=== PATIENT | female | born 1990 | race Caucasian/White ===

== ENCOUNTER → 2017-06-27 | Outpatient (CLI) | payer OTHER | END | disposition home or self-care (01) | LOC: C.PAPS 13:15 | PROVIDERS: ATTEND Physician Assistant | DX: Z01.419 Encounter for gynecological examination (general) (routine) without abnormal findings (principal) ==

== ENCOUNTER 2022-06-03 22:13 | Inpatient (IN) ==
[2022-06-04] MEDS ORDERED: OXYTOCIN 30 UNITS/500 ML BAG IV PRN ×2 (00:31→01:47)
[2022-06-04] MEDS ORDERED: BUTORPHANOL TARTRATE 1 MG/ML VIAL IV STA (00:44)
[2022-06-04 01:12] LABS: Hematocrit (blood only) 37.3 % (34.1-44.9); Mean Corpuscular Hemoglobin 33.8 pg (25.0-34.0); Mean Corpuscular Hgb Conc 34.9 g/dL (32.0-36.0); Mean Corpuscular Volume 96.9 fL (80.0-100.0); Mean Platelet Volume 10.7 fL (9.4-12.3); Platelet Count 203 K/uL (130-400); RDW Coefficient of Variation 12.5 % (11.5-14.5); RDW Standard Deviation 44.1 fL (36.4-46.3); Red Blood Count 3.85 M/uL (3.93-5.22); White Blood Count 18.05 K/ul (4.8-10.8)
[2022-06-04] MEDS: LACTATED RINGER'S 1,000 ML IV PRN ×3 (01:45→09:58)
[2022-06-04] MEDS ORDERED: fentaNYL citrate 100 MCG/2 ML VIAL ONE ×3 (02:13→16:50)
[2022-06-04] MEDS ORDERED: ePHEDrine sulfate 50 MG/ML AMP ONE (02:13)
[2022-06-04] MEDS ORDERED: LIDOCAINE 2%/EPINEPHRINE 1:200,000 20 ML SDV ONE ×2 (02:13→13:04)
[2022-06-04] MEDS ORDERED: SODIUM CHLORIDE 0.9% INJ 10 ML VIAL ONE (02:13)
[2022-06-04] MEDS ORDERED: BUPIVACAINE 0.25% 30 ML VIAL ONE (02:13)
[2022-06-04] MEDS ORDERED: fentaNYL 2MCG/ML ROPIVACAINE 1.25MG/ML 100 ML BAG EPI ONE (02:14)
--- NOTE | 2022-06-04 02:32 | Anesthesiology Consultation ---
Date of Service June 04, 2022 Assessment & Plan (1) Encounter for pre-operative examination: Chart Review Chart Review: Acceptable Risk for Labor Epidural History Height/Weight Height: 5 ft 3 in Weight: 73.028 kg Allergies Allergy/AdvReac Type Severity Reaction Status Date / Time shellfish derived Allergy Swelling Verified 06/02/22 18:28 of Lip/Tongue/Throat Medications Home Medications Medication Instructions Recorded Confirmed Last Taken vitamins-iron fumarate 65 1 tab PO DAILY 06/02/22 06/04/22 06/03/22 mg iron-folic acid 1 mg tablet Active Medications Generic Name Dose Route Start Last Admin Trade Name Freq PRN Reason Stop Dose Admin Lactated Ringer's 1,000 mls @ 125 mls/hr 06/04/22 00:31 06/04/22 01:45 Lr IV 06/06/22 00:30 999 mls/hr .Q8H PRN Administration L&D Protocol Protocol Past Medical History Medical History Anxiety no current meds Past Family History Family History Mother Hypertension Father Hypertension Grandmother (Maternal) Diabetes Kidney disease CHF (congestive heart failure) Grandmother (Paternal) Colon cancer Grandfather (Paternal) ALS (amyotrophic lateral sclerosis) Past Surgical History Surgical History H/O partial thyroidectomy age 16 for benign mass [place] teeth removed age 20 Social History Smoking Status: Never smoker Hx Alcohol Use: No Hx Substance Use: No Physical Exam Vital Signs Last Vital Signs Temp 36.8 C 06/04/22 01:04 Pulse 76 06/04/22 02:25 Resp 18 06/04/22 02:00 BP 111/54 L 06/03/22 23:41 Pulse Ox 97 06/04/22 02:25 Testing Laboratory Results 06/04/22 00:46
[2022-06-04] MEDS ORDERED: NALOXONE HCL 0.4 MG/1 ML VIAL/CARP IV PRN ×2 (03:03→17:05)
[2022-06-04] MEDS ORDERED: ONDANSETRON INJ 2 MG/ML 2 ML VIAL IV PRN ×2 (03:03→17:05)
[2022-06-04] MEDS ORDERED: fentaNYL 2MCG/ML ROPIVACAINE 1.25MG/ML 100 ML BAG EPI PRN (03:03)
[2022-06-04] MEDS ORDERED: NALOXONE HCL 1 MG in SODIUM CHLORIDE 0.9% 1000ML 1,000 ML IV PRN ×2 (03:03→17:05)
[2022-06-04] MEDS ORDERED: ePHEDrine sulfate 50 MG/ML AMP IV PRN ×2 (03:03→17:05)
[2022-06-04] MEDS ORDERED: NURSING L&D Epidural Breakthrough Pain Update ONE (12:20)
--- NOTE | 2022-06-04 13:16 | Communication Note ---
Date of Service: June 04, 2022 Pt complaining of cocyx pain and baby is most likely OP. I bolused her 4 cc of 2 lidocaine and 100 mcg of fentanyl.
--- NOTE | 2022-06-04 16:13 | History and Physical Report ---
DATE OF ADMISSION: 06/04/2022. CHIEF COMPLAINT: Intrauterine at 41 weeks' gestation, arrest of labor. HISTORY OF PRESENT ILLNESS: The patient is a 31-year-old 1, para 0. General health is good. She was followed in our office for care and delivery. She had an uneventful cour se. She did go over her due date. Due date, 05/26/2022, was confirmed by an early ultrasound. She w as admitted in spontaneous labor. At the time of admission, she was about 5 cm, membranes were intact . Cervix was about 90% effaced. She then had Stadol followed by epidural for pain control and then was augmented with IV Pitocin. She had a bulging bag, which was ruptured, fluid was slightly meconiu m stained. At the time of rupture, she was 9 cm. She was then allowed to labor down. She went to f ull dilatation. She pushed for 4-1/2 hours and she had a mid pelvis arrest. The head was wedged in the mid pelvis in an OA position and despite pushing, she could not make any progress. She was diagn osed with cephalopelvic disproportion and primary low segment section was indicated. PAST MEDICAL HISTORY: No known drug allergies. PAST SURGICAL HISTORY: She had part of her thyroid removed and she had wisdom teeth removed. MEDICAL HISTORY: No history of rheumatic fever, heart disease, heart murmur, diabetes, tuberculosis. SOCIAL HISTORY: No smoking, no alcohol intake. Works at the [employer]. FAMILY HISTORY: Mother is 60, has high blood pressure. Father 61, has high blood pressure, kidney d isease. Has one sister and one brother, and one sister has infertility problems. REVIEW OF SYSTEMS: HEAD: No symptoms of frequent or severe headaches. EYES: No symptoms of blurred vision or double vision. EARS: No symptoms of frequent ear infection or difficulty hearing. PHYSICAL EXAMINATION: GENERAL: Well-developed, well-nourished 31-year-old white female, alert, oriented x3, cooperative, i n no acute distress, appeared her stated age. EYES: Conjunctivae pink. Sclerae white, no evidence of jaundice. ENT: Ears had normal light reflex bilaterally. Nose had normal mucosa. Septum is midline. There w ere no polyps. Throat had no erythema or evidence of infection. Teeth are in good state of repair. HEAD: Normocephalic, normal distribution of hair. NECK: Supple. Trachea midline. Thyroid is not enlarged. There is no adenopathy appreciated. Both carotids are of good intensity. CHEST: Clear to auscultation and percussion. No wheezes, rales or rhonchi appreciated. HEART: Had regular rhythm. S1 and S2 are normal. BREASTS: Normal. ABDOMEN: Consistent with a term size fetus. Estimated weight was 8 pounds. There was no CVA tender ness, no calf tenderness. PELVIC: Revealed vertex presentation, large amount of molding, 0 to -1 station in OA position. IMPRESSION OF THIS CASE: Intrauterine 41+ weeks' gestation, arrest of labor secondary to c ephalopelvic disproportion. Job ID: [id number]
[2022-06-04] MEDS ORDERED: cefOXitin 2,000 MG in DEXTROSE 5% 50 ML IV SCH (16:15)
[2022-06-04] MEDS ORDERED: CITRIC ACID/SODIUM CITRATE 15 ML UDC PO SCH (16:15)
[2022-06-04 16:19] LABS: Basophils # (auto) 0.02 K/uL (0-0.2); Basophils % (auto) 0.1 %; Hematocrit (blood only) 32.9 % (34.1-44.9); Hemoglobin 11.6 g/dl (12.0-16.0); Immature Granulocytes # (auto) 0.12 K/uL (0.00-0.02); Immature Granulocytes % (auto) 0.7 %; Lymphocytes # (auto) 1.06 K/uL (1.2-3.4); Mean Corpuscular Hemoglobin 33.7 pg (25.0-34.0); Mean Corpuscular Hgb Conc 35.3 g/dL (32.0-36.0); Mean Corpuscular Volume 95.6 fL (80.0-100.0); Mean Platelet Volume 10.7 fL (9.4-12.3); Monocytes # (auto) 1.17 K/uL (0.24-0.82); Monocytes % (auto) 6.6 %; Neutrophils # (auto) 15.32 K/uL (1.4-6.5); Neutrophils % (auto) 86.6 %; Platelet Count 171 K/uL (130-400); RDW Coefficient of Variation 12.7 % (11.5-14.5); RDW Standard Deviation 43.9 fL (36.4-46.3); Red Blood Count 3.44 M/uL (3.93-5.22); White Blood Count 17.69 K/ul (4.8-10.8)
[2022-06-04] MEDS ORDERED: MoRPHine SULFATE PF 1 MG/ML 10 ML AMP/VIAL ONE (17:04)
[2022-06-04] MEDS ORDERED: LACTATED RINGER'S 500 ML IV PRN (17:05)
[2022-06-04] MEDS ORDERED: diphenhydrAMINE 50 MG/ML VIAL IV PRN (17:05)
[2022-06-04] MEDS ORDERED: MoRPHine SULFATE PF 1 MG/ML 10 ML AMP/VIAL EPI ONE (17:05)
[2022-06-04] MEDS ORDERED: NALOXONE HCL 0.08 MG in SYRINGE 1.8 ML IV PRN (17:05)
[2022-06-04] MEDS ORDERED: NALBUPHINE HCL INJ 10 MG/ML AMP IV PRN (17:05)
[2022-06-04] MEDS ORDERED: MoRPHine SULFATE 2 MG/ML CARP IV PRN (17:05)
[2022-06-04] MEDS ORDERED: KETOROLAC 30 MG/ML VIAL IV PRN (17:05)
[2022-06-04] MEDS ORDERED: DC INTRASPINAL MORPHINE SCH (17:15)
[2022-06-04] MEDS ORDERED: NO NARCOTICS OR SEDATIVES SCH (17:15)
[2022-06-04] MEDS ORDERED: SODIUM CHLORIDE 0.9% 1000ML 1,000 ML IV SCH (17:15)
[2022-06-04] MEDS ORDERED: HYDROCORTISONE ACETATE 25 MG SUPP PR PRN (17:41)
[2022-06-04] MEDS ORDERED: MAGNESIUM HYDROXIDE SUSP 30 ML UDC PO PRN (17:41)
[2022-06-04] MEDS ORDERED: DIPHTHERIA/TETANUS/PERTUSSIS 0.5 ML SYR/VIAL IM ONE (17:41)
[2022-06-04] MEDS ORDERED: SENNA 8.6 MG TAB PO PRN (17:41)
[2022-06-04] MEDS ORDERED: BENZOCAINE 20% AER SPR 82.5 GM CAN EXT PRN (17:41)
[2022-06-04] MEDS ORDERED: LACTATED RINGER'S 1,000 ML IV SCH (17:45)
--- NOTE | 2022-06-04 18:18 | Anesthesiology Progress Note ---
Date of Service June 04, 2022 Anesthesia Post Procedure Vital Signs Vital Signs: Temp Pulse Resp BP Pulse Ox 06/04/22 18:10 18 06/04/22 18:00 37.2 C 18 06/04/22 07:00 37.0 C 18 06/04/22 01:04 36.8 C 18 06/04/22 18:14 91 H 98 06/04/22 18:13 83 113/58 L 06/04/22 18:09 87 98 06/04/22 18:04 92 H 99 06/04/22 18:02 93 H 117/54 L 06/04/22 17:59 88 100 06/04/22 17:54 76 99 06/04/22 17:50 79 109/58 L 06/04/22 17:49 82 100 06/04/22 16:21 89 80 L 06/04/22 16:16 107 H 98 06/04/22 16:15 37.5 C 06/04/22 16:11 108 H 97 06/04/22 16:07 86 138/62 06/04/22 16:06 95 H 100 06/04/22 16:01 84 16 99 06/04/22 15:56 81 100 06/04/22 15:51 82 121/62 99 06/04/22 15:46 81 98 06/04/22 15:41 87 99 06/04/22 15:36 75 132/62 99 06/04/22 15:31 75 18 99 06/04/22 15:30 86 85 L 06/04/22 15:26 73 98 06/04/22 15:21 86 87 L 06/04/22 15:16 74 96 06/04/22 15:15 83 87 L 06/04/22 15:11 71 98 06/04/22 15:06 87 87 L 06/04/22 15:01 37.7 C H 77 18 99 06/04/22 14:58 82 87 L 06/04/22 14:56 85 99 06/04/22 14:53 89 89 L 06/04/22 14:51 71 98 06/04/22 14:52 71 121/56 L 06/04/22 14:48 84 88 L 06/04/22 14:46 80 98 06/04/22 14:41 75 99 06/04/22 14:40 79 92 06/04/22 14:36 76 131/74 99 06/04/22 14:34 92 H 94 06/04/22 14:31 87 16 99 06/04/22 14:26 83 99 06/04/22 14:23 72 118/59 L 90 06/04/22 14:21 71 98 06/04/22 14:16 99 06/04/22 14:16 89 06/04/22 14:16 73 87 L 06/04/22 14:11 99 06/04/22 14:11 79 06/04/22 14:11 73 89 L 06/04/22 14:01 18 06/04/22 14:01 18 06/04/22 14:06 77 115/56 L 99 06/04/22 14:05 84 88 L 06/04/22 14:01 100 06/04/22 14:01 74 06/04/22 14:01 73 118/59 L 06/04/22 13:59 73 88 L 06/04/22 13:56 94 H 87 L 06/04/22 13:53 84 92 06/04/22 13:54 92 H 154/121 H 06/04/22 13:51 80 100 06/04/22 13:48 81 92 06/04/22 13:46 81 99 06/04/22 13:41 87 100 06/04/22 13:36 68 99 06/04/22 13:37 67 109/53 L 06/04/22 13:31 64 98 06/04/22 13:26 68 100 06/04/22 13:23 64 20 114/56 L 06/04/22 13:21 64 100 06/04/22 13:16 65 99 06/04/22 13:15 16 06/04/22 13:15 36.7 C 16 06/04/22 13:11 82 99 06/04/22 13:08 95 H 90 06/04/22 13:06 107 H 120/59 L 84 L 06/04/22 13:04 112 H 133/57 L 06/04/22 13:01 103 H 18 98 06/04/22 12:56 107 H 93 06/04/22 12:55 107 H 93 06/04/22 12:51 78 99 06/04/22 12:49 88 90 06/04/22 12:46 80 76 L 06/04/22 12:41 81 95 06/04/22 12:42 80 93 06/04/22 12:37 74 120/59 L 06/04/22 12:36 94 H 99 06/04/22 12:31 80 98 06/04/22 12:30 18 06/04/22 12:26 83 99 06/04/22 12:25 95 H 92 06/04/22 12:21 80 126/67 98 06/04/22 12:19 92 H 94 06/04/22 12:16 99 H 99 06/04/22 12:11 114 H 98 06/04/22 12:08 86 187/71 H 06/04/22 12:05 79 91 06/04/22 12:01 18 06/04/22 12:01 18 06/04/22 12:00 86 94 06/04/22 11:57 79 91 06/04/22 11:55 91 H 99 06/04/22 11:53 80 116/55 L 06/04/22 11:51 79 92 06/04/22 11:50 78 98 06/04/22 11:45 81 97 06/04/22 11:43 100 H 91 06/04/22 11:40 82 99 06/04/22 11:35 77 99 06/04/22 11:36 73 112/54 L 91 06/04/22 11:31 18 06/04/22 11:31 18 06/04/22 11:30 75 98 06/04/22 11:25 70 98 06/04/22 11:22 64 108/58 L 06/04/22 11:20 86 98 06/04/22 11:15 81 99 06/04/22 11:14 37.0 C 06/04/22 11:01 18 06/04/22 11:01 18 06/04/22 11:10 81 100 06/04/22 11:06 75 157/75 H 06/04/22 11:05 69 98 06/04/22 11:00 76 98 06/04/22 10:55 74 97 06/04/22 10:51 75 111/55 L 06/04/22 10:50 72 98 06/04/22 10:31 18 06/04/22 10:31 18 06/04/22 10:45 78 100 06/04/22 10:40 73 99 06/04/22 10:39 74 89 L 06/04/22 10:35 71 98 06/04/22 10:36 74 110/55 L 06/04/22 10:32 81 93 06/04/22 10:30 74 99 06/04/22 10:27 73 94 06/04/22 10:25 67 100 06/04/22 10:21 67 118/59 L 06/04/22 10:20 67 99 06/04/22 10:15 74 99 06/04/22 10:10 73 100 06/04/22 10:01 18 06/04/22 10:01 18 06/04/22 10:05 68 100 06/04/22 10:06 72 113/61 06/04/22 10:00 76 100 06/04/22 09:55 71 99 06/04/22 09:52 71 115/57 L 06/04/22 09:31 18 06/04/22 09:31 18 06/04/22 09:50 61 100 06/04/22 09:45 66 98 06/04/22 09:40 73 100 06/04/22 09:35 62 99 06/04/22 09:36 67 110/56 L 06/04/22 09:30 69 99 06/04/22 09:25 64 99 06/04/22 09:21 64 118/58 L 06/04/22 09:20 66 100 06/04/22 09:15 37.1 C 65 98 06/04/22 09:10 67 100 06/04/22 09:06 60 107/56 L 06/04/22 09:05 61 99 06/04/22 09:00 72 16 99 06/04/22 08:55 66 99 06/04/22 08:51 61 121/66 06/04/22 08:50 65 99 06/04/22 08:45 68 100 06/04/22 08:31 16 06/04/22 08:31 16 06/04/22 08:40 66 100 06/04/22 08:36 63 115/60 06/04/22 08:35 74 98 06/04/22 08:32 70 92 06/04/22 08:30 65 100 06/04/22 08:25 63 100 06/04/22 08:20 62 100 06/04/22 08:21 61 127/69 06/04/22 08:15 60 99 06/04/22 07:31 16 06/04/22 07:31 16 06/04/22 08:10 63 99 06/04/22 08:01 16 06/04/22 08:01 16 06/04/22 08:07 63 123/66 06/04/22 08:05 67 100 06/04/22 08:00 72 100 06/04/22 07:55 67 99 06/04/22 07:53 60 113/62 06/04/22 07:50 68 98 06/04/22 07:45 60 99 06/04/22 07:40 64 100 06/04/22 07:37 63 118/58 L 06/04/22 07:35 72 100 06/04/22 07:30 68 99 06/04/22 07:25 69 100 06/04/22 07:22 65 113/54 L 06/04/22 07:20 67 100 06/04/22 07:15 72 99 06/04/22 07:10 18 06/04/22 07:10 37.0 C 68 18 100 06/04/22 07:07 71 107/59 L 06/04/22 07:05 71 99 06/04/22 07:00 70 18 100 06/04/22 06:55 65 98 06/04/22 06:52 58 L 121/66 06/04/22 06:50 60 98 06/04/22 06:45 67 99 06/04/22 06:40 60 96 06/04/22 06:36 57 L 120/64 06/04/22 06:35 61 97 06/04/22 06:30 57 L 18 97 06/04/22 06:25 71 97 06/04/22 06:22 59 L 119/65 06/04/22 06:20 66 96 06/04/22 06:15 67 97 06/04/22 06:10 69 97 06/04/22 06:05 68 97 06/04/22 06:06 58 L 121/65 06/04/22 06:00 64 18 97 06/04/22 05:55 60 98 06/04/22 05:52 64 107/67 06/04/22 05:50 61 98 06/04/22 05:45 62 98 06/04/22 05:40 71 99 06/04/22 05:37 63 117/62 06/04/22 05:35 72 98 06/04/22 05:30 37.0 C 72 18 98 06/04/22 05:25 70 100 06/04/22 05:20 59 L 97 06/04/22 05:21 63 122/59 L 06/04/22 05:15 59 L 98 06/04/22 05:10 60 98 06/04/22 05:06 57 L 119/58 L 06/04/22 05:05 62 97 06/04/22 05:00 36.6 C 60 18 97 06/04/22 04:55 57 L 98 06/04/22 04:52 59 L 96/52 L 06/04/22 04:50 63 97 06/04/22 04:45 60 97 06/04/22 04:40 68 97 06/04/22 04:35 60 96 06/04/22 04:36 59 L 99/51 L 06/04/22 04:30 63 18 96 06/04/22 04:25 57 L 97 06/04/22 04:22 64 93/54 L 06/04/22 04:20 63 99 06/04/22 04:15 59 L 96 06/04/22 04:10 65 98 06/04/22 04:06 57 L 107/54 L 06/04/22 04:05 59 L 97 06/04/22 03:47 16 06/04/22 03:47 16 06/04/22 04:00 62 98 06/04/22 03:55 63 98 06/04/22 03:52 56 L 108/59 L 06/04/22 03:50 58 L 97 06/04/22 03:45 59 L 97 06/04/22 03:40 57 L 98 06/04/22 03:37 57 L 112/54 L 06/04/22 03:35 60 99 06/04/22 03:30 62 98 06/04/22 03:25 63 97 06/04/22 03:03 18 06/04/22 03:03 18 06/04/22 03:07 18 06/04/22 03:07 18 06/04/22 03:09 18 06/04/22 03:09 18 06/04/22 03:11 18 06/04/22 03:11 18 06/04/22 03:13 18 06/04/22 03:13 18 06/04/22 03:15 18 06/04/22 03:15 18 06/04/22 03:17 18 06/04/22 03:17 18 06/04/22 03:19 18 06/04/22 03:19 18 06/04/22 03:01 18 06/04/22 03:01 18 06/04/22 03:20 100 06/04/22 03:20 71 06/04/22 03:20 64 100/57 L 06/04/22 03:18 67 98/56 L 06/04/22 03:16 68 104/53 L 06/04/22 03:15 37.0 C 69 18 99 06/04/22 03:14 68 100/55 L 06/04/22 03:12 67 95/52 L 06/04/22 03:10 100 06/04/22 03:10 73 06/04/22 03:10 69 100/54 L 06/04/22 03:08 61 97/56 L 06/04/22 03:05 66 18 100 06/04/22 03:06 66 104/59 L 06/04/22 03:04 62 100/52 L 06/04/22 03:00 70 99 06/04/22 02:58 69 113/64 06/04/22 02:55 79 99 06/04/22 02:50 71 99 06/04/22 02:48 81 124/67 06/04/22 02:45 95 06/04/22 02:45 87 06/04/22 02:45 101 H 85 L 06/04/22 02:43 75 92 06/04/22 02:40 77 100 06/04/22 02:35 66 94 06/04/22 02:30 62 96 06/04/22 02:25 76 97 06/04/22 02:20 69 97 06/04/22 02:00 18 06/04/22 02:00 18 06/03/22 23:41 71 111/54 L Pain Intensity Lower Back: Pain Intensity: 1 Transfer of Care Handoff Completed per policy Notes Mental Status: alert / awake / arousable and participated in evaluation Patient Amnestic to Procedure: Yes Nausea / Vomiting: adequately controlled Pain: adequately controlled Airway Patency, RR, SpO2: stable & adequate BP & HR: stable & adequate Hydration State: stable & adequate Neuraxial Anesthesia: was administered and sensory block is resolving Anesthetic Complications: no major complications apparent and Pt Satisfied with anesthetic care
[2022-06-04] MEDS: OXYTOCIN 20 UNITS in D5W AND LACTATED RINGERS 1,000 ML IV SCH (18:42)
--- NOTE | 2022-06-04 19:09 | Operative Report (OR) ---
DATE OF PROCEDURE: 06/04/2022. PROCEDURE: Primary section. INDICATIONS FOR SURGERY: Cephalopelvic disproportion. PREOPERATIVE DIAGNOSIS: Cephalopelvic disproportion. POSTOPERATIVE DIAGNOSIS: Delivered live female via occiput posterior position. SURGEON: Dez Ontiveros MD. SILVERLIGHT DEVELOPER: Peter Sy MD. ESTIMATED BLOOD LOSS: 500 mL ANESTHESIA: Epidural. OPERATIVE FINDING AND PROCEDURE: The patient was brought to the OR table, correctly identified by shaniqua whittaker and conversation. Compression stockings were applied. A Feliciano catheter was inserted aseptical ly in the bladder, connected to gravity drainage. Lower abdomen was painted with an alcohol based st erilizing solution and draped in the usual sterile fashion. The level of anesthesia was tested and f ound to be good. Then, a Pfannenstiel incision was made and carried down to the anterior fascia by s benjamin dissection. Hemostasis was secured by electrocauterization. Fascia was incised transversely se parating the underlying muscle by blunt and sharp dissection. Recti muscles were in the mi dline, exposing the peritoneum, which was carefully raised and entered. The bladder had been moved u p high on the operative field. We entered above the bladder dome, used the bladder retractor to expo se the lower uterine segment, then opened up the peritoneum above the bladder, undermined the bladder bluntly, pushed out of the operative field, scored the lower uterine segment, then entered with the scissors and extended laterally with two fingers. Meconium stained amniotic fluid was seen at this t bernadette. Technical Sales Support Manager's hand was inserted into the pelvic cavity. The head was easily dislodged from the pe lvis and it also rotated spontaneously on the way out from an OP to an OA. Infant was suctioned thro ugh the mouth and the nose. Body was delivered. Cord blood was stripped and cut. was shown to the parents and then taken to the fagoter who was scrubbed and present at the time of deliver y. Cord blood was taken. Placenta was removed manually. Uterus, tubes, and ovaries were brought ou t through the incision. Uterine cavity was cleansed with a clean sponge. Chromic catgut was used to approximate the myometrial layer with interrupted locked sutures. Then, a dissected fascial layer wa s approximated with a good fascial approximation over that with a heavy duty Vicryl. The edges were approximated with a horizontal suture above and below and then tied together and then the midportion was approximated with vertical sutures and then 3 interrupted [id number] sutures were also place d in the fascial layer to complete the approximation. The peritoneal edges were then restored with a running chromic catgut. Uterus, tubes, and ovaries were inspected and found to be normal. Pelvis w as cleansed of all blood clots and debris. Uterus, tubes, and ovaries were reinserted into the uteri ne cavity. Careful anatomical approximation of the anterior abdominal wall was performed. The perit oneum was sewed with a mattress suture of chromic catgut. Recti muscles were approximated with inter rupted [id number] suture chromic catgut. Fascia was closed with continuous interlocking suture of Vicryl on each side tied in the midline. Subcutaneous was approximated with a running plain and s kin edges were approximated with staple clips. Job ID: [id number]
[2022-06-04] MEDS: DOCUSATE SODIUM 100 MG CAP PO SCH (20:57)
[2022-06-04] MEDS: SIMETHICONE 80 MG CHEW PO SCH (20:59)
[2022-06-05] MEDS: OXYTOCIN 20 UNITS in D5W AND LACTATED RINGERS 1,000 ML IV SCH (03:43)
[2022-06-05 06:17] LABS: Basophils # (auto) 0.04 K/uL (0-0.2); Basophils % (auto) 0.3 %; Hematocrit (blood only) 31.1 % (34.1-44.9); Hemoglobin 10.7 g/dl (12.0-16.0); Immature Granulocytes # (auto) 0.07 K/uL (0.00-0.02); Immature Granulocytes % (auto) 0.5 %; Lymphocytes # (auto) 1.41 K/uL (1.2-3.4); Lymphocytes % (auto) 9.2 %; Mean Corpuscular Hemoglobin 33.2 pg (25.0-34.0); Mean Corpuscular Hgb Conc 34.4 g/dL (32.0-36.0); Mean Corpuscular Volume 96.6 fL (80.0-100.0); Mean Platelet Volume 10.7 fL (9.4-12.3); Monocytes # (auto) 0.91 K/uL (0.24-0.82); Monocytes % (auto) 5.9 %; Neutrophils # (auto) 12.87 K/uL (1.4-6.5); Neutrophils % (auto) 84.1 %; Platelet Count 162 K/uL (130-400); RDW Coefficient of Variation 12.7 % (11.5-14.5); RDW Standard Deviation 44.7 fL (36.4-46.3); Red Blood Count 3.22 M/uL (3.93-5.22)
[2022-06-05] MEDS: SIMETHICONE 80 MG CHEW PO SCH ×4 (08:22→20:29)
[2022-06-05] MEDS: PRENATAL VITAMIN 1 TAB PO SCH (08:23)
[2022-06-05] MEDS: FERROUS SULFATE 325 MG TAB PO SCH (08:23)
[2022-06-05] MEDS: DOCUSATE SODIUM 100 MG CAP PO SCH ×2 (08:23→20:27)
--- NOTE | 2022-06-05 08:55 | Obstetrical Progress Note ---
Date of Service June 05, 2022 Assessment & Plan Admission and Anticipated Discharge Date Admission Date: June 04, 2022 Subjective abdomen soft and non tender bowel sounds present but hypoactive no calf tenderness vaginal bleeding scant hgb 10. bandage is clean and dry Results & Data ([facility]) Vital Signs (Past 12 Hours) Vital Signs Temp Pulse Resp BP Pulse Ox O2 Del Method 06/05/22 07:45 36.8 C 83 18 106/67 97 Room Air 06/05/22 07:45 18 97 06/05/22 06:00 18 97 06/05/22 04:45 36.5 C 86 16 112/74 96 Room Air 06/05/22 05:00 18 96 06/05/22 04:00 18 96 06/05/22 03:00 20 95 06/05/22 02:00 18 96 06/05/22 01:00 18 96 06/05/22 00:00 20 97 06/04/22 23:00 18 96 06/04/22 22:00 18 95 06/05/22 01:15 36.8 C 69 18 112/70 97 Room Air 06/04/22 21:02 18 96
[2022-06-05] MEDS ORDERED: PROMETHAZINE HCL 25 MG in SODIUM CHLORIDE 0.9% 50 ML IV PRN (11:06)
[2022-06-05] MEDS ORDERED: MEPERIDINE HCL 50 MG/ML CARP IV PRN (11:06)
[2022-06-05] MEDS ORDERED: oxyCODONE/ACETAMINOPHEN 5mg/325mg TAB PO PRN (11:06)
[2022-06-05] MEDS ORDERED: KETOROLAC 30 MG/ML VIAL IV PRN (11:06)
[2022-06-05] MEDS ORDERED: diphenhydrAMINE 50 MG/ML VIAL IV PRN (11:06)
[2022-06-05] MEDS ORDERED: diphenhydrAMINE Capsule 25 MG CAP PO PRN (11:06)
[2022-06-05] MEDS ORDERED: ZOLPIDEM TARTRATE 5 MG TAB PO PRN (11:06)
[2022-06-05] MEDS ORDERED: ONDANSETRON INJ 2 MG/ML 2 ML VIAL IV PRN (11:06)
[2022-06-05] MEDS: IBUPROFEN 600 MG TAB PO PRN ×3 (11:28→20:29)
[2022-06-05] MEDS ORDERED: bisacodyL 5 MG TABEC PO SCH (20:00)
[2022-06-06] MEDS: IBUPROFEN 600 MG TAB PO PRN ×3 (01:13→14:05)
[2022-06-06 06:13] LABS: Hematocrit (blood only) 30.9 % (34.1-44.9); Hemoglobin 10.4 g/dl (12.0-16.0)
--- NOTE | 2022-06-06 08:49 | Obstetrical Progress Note ---
Date of Service June 06, 2022 Assessment & Plan Admission and Anticipated Discharge Date Admission Date: June 04, 2022 Subjective abdomen soft and non tender incision is clean and dry no calf tenderness ambulating well vaginal bleeding scant hgb 10.4 Results & Data ([facility]) Vital Signs (Past 12 Hours) Vital Signs Temp Pulse Resp BP Pulse Ox O2 Del Method O2 Flow Rate 06/05/22 23:50 36.5 C 60 16 113/73 98 Room Air 06/05/22 23:50 Room Air 98
[2022-06-06] MEDS: PRENATAL VITAMIN 1 TAB PO SCH (08:56)
[2022-06-06] MEDS: FERROUS SULFATE 325 MG TAB PO SCH (08:56)
[2022-06-06] MEDS: DOCUSATE SODIUM 100 MG CAP PO SCH (08:56)
[2022-06-06] MEDS: SIMETHICONE 80 MG CHEW PO SCH ×2 (08:56→14:05)
--- NOTE | 2022-06-06 09:25 | Discharge Summary (DS) ---
DATE OF SERVICE: 06/06/2022. HOSPITAL COURSE: She is a 1, para 1, blood type A positive, group B strep negative. The janis hayes is followed in our office for care and delivery. She went over her due date, had her m embranes stripped in the office. Eventually, she came in active labor. When I first checked her aft er admission, she was like 5 cm dilated. She eventually went on to receive Stadol and then epidural for pain control and then her contractions were augmented with IV Pitocin. At about 6-7 cm, membrane s were ruptured surgically. There was light meconium noted. Basically, she was given Pitocin stimul ation. She became fully dilated. She pushed for 4-1/2 hours and was unable to get the head into the mid pelvis. At that time, a diagnosis of cephalopelvic disproportion was made and under epidural an esthesia, she underwent a primary low segment section without any complications. Estimated blood loss was 500 mL. Her preoperative hemoglobin was 13. Postoperatively, hemoglobin had dropped t o 10.4. Her bowel sounds returned within 24 hours, she remained afebrile. On her second postoperativ e day, she requested discharge. She was given the usual prescriptions for Percocet and Motrin and to ld to return in one week for removal of darin. Job ID: [id number]
[2022-06-06] MEDS ORDERED: bisacodyL 10 MG SUPP PR PRN (17:44)
== END 2022-06-06 15:24 | disposition home or self-care (01) | DRG 788 ==
LOC: OPB 22:13 → 4S1 22:14 → 4E2 06-04 20:33

== ENCOUNTER 2024-09-01 05:30 | Inpatient (IN) ==
--- NOTE | 2024-08-16 09:37 | Anesthesiology Consultation ---
Date of Service August 16, 2024 Assessment & Plan (1) Encounter for pre-operative examination: Chart Review Chart Review: nuclear operations specialist initiated -Infectious Disease screening: Per PAT nursing assessment on 08/16/24. No known infectious disease contacts in past 10 days or current infectious disease symptoms. No recent travel outside the country. Primary (due to failure to progress) 08/03/22= Done with epidural CSE 06/04/22= Done at L3-4 with 1 attempt History Surgery Operation Date: 09/01/24 07:30 Proposed Procedures p Repeat Section - Ammy Saucedo MD Height/Weight Height: 5 ft 3 in Weight: 72.575 kg Allergies Allergy/AdvReac Type Severity Reaction Status Date / Time shellfish derived Allergy Intermediate Swelling Verified 08/16/24 08:26 of Lip/Tongue/Throat Medications Home Medications Medication Instructions Recorded Confirmed Last Taken vitamins-iron fumarate 65 1 tab PO HS 06/02/22 08/16/24 06/03/22 mg iron-folic acid 1 mg tablet Past Medical History Medical History Anxiety no current meds Past Family History Family History Mother Hypertension Father Hypertension Grandmother (Maternal) Diabetes Kidney disease CHF (congestive heart failure) Grandmother (Paternal) Colon cancer Grandfather (Paternal) ALS (amyotrophic lateral sclerosis) Past Surgical History Surgical History H/O partial thyroidectomy age 16 for benign mass Hx of section [place] teeth removed age 20 Social History Smoking Status: Never smoker Do You Dip or Chew Tobacco: No Hx Alcohol Use: No Hx Substance Use: No substance use type: does not use
[2024-09-01 06:26] LABS: Basophils # (auto) 0.02 K/uL (0.00-0.20); Basophils % (auto) 0.2 %; Eosinophils # (auto) 0.02 K/uL (0.00-0.50); Eosinophils % (auto) 0.2 %; Hematocrit (blood only) 36.7 % (37.0-47.0); Hemoglobin 12.8 g/dl (12.0-16.0); Immature Granulocytes # (auto) 0.05 K/uL (0.01-0.20); Immature Granulocytes % (auto) 0.5 %; Lymphocytes # (auto) 2.18 K/uL (1.20-3.40); Lymphocytes % (auto) 21.9 %; Mean Corpuscular Hemoglobin 32.8 pg (25.0-34.0); Mean Corpuscular Hgb Conc 34.9 g/dL (32.0-36.0); Mean Corpuscular Volume 94.1 fL (80.0-100.0); Mean Platelet Volume 10.8 fL (9.4-12.4); Neutrophils # (auto) 6.89 K/uL (1.40-6.50); Neutrophils % (auto) 69.2 %; Platelet Count 225 K/uL (130-400); RDW Coefficient of Variation 12.9 % (11.5-14.5); White Blood Count 9.96 K/ul (4.8-10.8)
[2024-09-01] MEDS: ACETAMINOPHEN 500 MG TAB PO SCH (06:41)
[2024-09-01] MEDS ORDERED: LACTATED RINGER'S 1,000 ML IV SCH ×2 (06:45→08:45)
[2024-09-01] MEDS: LACTATED RINGER'S 1,000 ML IV SCH (06:59)
[2024-09-01] MEDS: ceFAZolin 2000MG 2,000 MG/15 ML SYR IV SCH (07:25)
[2024-09-01] MEDS ORDERED: PHENYLEPHRINE HCL 10 MG/ML VIAL ONE (07:27)
[2024-09-01] MEDS ORDERED: MoRPHine SULFATE PF 1 MG/ML 10 ML AMP/VIAL ONE (07:27)
--- NOTE | 2024-09-01 07:33 | History & Physical Bridge Note ---
Date of Service September 01, 2024 History & Physical Bridge Note I have examined the patient, reviewed the History & Physical and in the interval since the performance of the History & Physical I have noted the following changes of clinical significance: no changes noted She has no complaints, no ctxs/ LOF/ VB +FM Signed an informed consent for Repeat LTCS All questions were answered.
[2024-09-01] MEDS: CITRIC ACID/SODIUM CITRATE 15 ML UDC PO SCH (07:39)
[2024-09-01] MEDS ORDERED: KETOROLAC 30 MG/ML VIAL ONE (08:10)
[2024-09-01] MEDS ORDERED: ONDANSETRON INJ 2 MG/ML 2 ML VIAL ONE (08:10)
[2024-09-01] MEDS ORDERED: HYDROCORTISONE ACETATE 25 MG SUPP PR PRN (08:36)
[2024-09-01] MEDS ORDERED: PROMETHAZINE 12.5 MG/50.5 ML BAG IV PRN (08:36)
[2024-09-01] MEDS ORDERED: DIPHTHER/TETAN/PERTUS Vaccine (Tdap, Adol/Adult) 0.5mL IM ONE (08:36)
[2024-09-01] MEDS ORDERED: MEASLES, MUMPS & RUBELLA VIRUS VACCINE (MMR) 0.5ML VIAL SQ ONE (08:36)
[2024-09-01] MEDS ORDERED: SENNA 8.6 MG TAB PO PRN (08:36)
[2024-09-01] MEDS ORDERED: ONDANSETRON INJ 2 MG/ML 2 ML VIAL IV PRN ×2 (08:36→09:11)
[2024-09-01] MEDS ORDERED: CALCIUM CARBONATE 500 MG CHEWABLE TAB PO PRN (08:36)
[2024-09-01] MEDS ORDERED: diphenhydrAMINE 50 MG/ML VIAL IV PRN ×2 (08:36→09:11)
[2024-09-01] MEDS ORDERED: MAGNESIUM HYDROXIDE SUSP 30 ML UDC PO PRN (08:36)
[2024-09-01] MEDS ORDERED: HYDROmorphone INJ 0.5 MG/0.5 ML SYR IV PRN ×2 (08:36→09:11)
[2024-09-01] MEDS ORDERED: diphenhydrAMINE Capsule 25 MG CAP PO PRN (08:36)
[2024-09-01] MEDS ORDERED: BENZOCAINE 20% SPRY 85 APPLN/85 GM CAN EXT PRN (08:36)
[2024-09-01] MEDS ORDERED: oxyCODONE HCL IR 5 MG TAB (IMMEDIATE RELEASE) PO PRN (08:36)
--- NOTE | 2024-09-01 08:43 | Operative Report ---
Post Operative Report Pre & Post Diagnosis Operation Date: 09/01/24 07:30 Pre-Op Diagnosis: 1. Term 2. Previous ceasarea section Post-Op Diagnosis: same I identified the patient and participated in the time-out.: Yes Procedure Operation Date: 09/01/24 07:30 Actual Procedures p Repeat Section with the of a live male child at 0800. - Ammy Saucedo MD Surgeon Ammy Saucedo MD Customs Compliance Specialist Dr Ontiveros Quantitative Blood Loss (QBL) 342 ml Findings Consistent with Post-Op Diagnosis Baby was a viable male delivered at 8:00 AM, Apgars 8/9 weight is 4010 g, Maternal findings normal uterus fallopian tubes and ovaries. Specimens Placenta and cord Drains Feliciano catheter: 300 ml clear urine Anesthesia Type Spinal Complications none Indications Patient is a 34-year-old -0-0-1 at 39 weeks and 5 days of gestation with history of prior due to arrest of descent in second stage of labor, opting for repeat . Description of Procedure Patient was taken to operating room where a spinal anesthesia was given without difficulty. She was placed in dorsal supine position with a leftward tilt. She was prepared and draped in usual sterile fashion. A financial skin incision was made and carried through to the underlying layer of fascia with the Bovie. Fascia was incised in the midline and incision was extended laterally with the help of Nino scissors. Then the upper aspect of the fascial incision was grasped with 2 Rupa clamps elevated the underlying rectus muscles were dissected off sharply with Nino scissors. Same thing was done on the lower incision. Then the muscles were in the midline, peritoneum was identified grasped with 2 pickups and entered sharply with Metzenbaum scissors. Peritoneal incision was extended superior and inferiorly with good visualization of the bladder. The bladder blade was inserted. Vesicouterine peritoneum was identified, grasped with pickups and entered sharply with Metzenbaum scissors, bladder flap was created digitally and bladder blade was reinserted. Uterus was incised in transverse fashion, incision was extended laterally, membranes were ruptured and clear fluid was obtained. Baby's head was delivered without difficulty, followed by shoulders and body with minimal traction without faculty. Mouth and nose were suctioned there was dried on the field he was vigorously crying and moving. The cord was clamped times and cut at 1 minute delay and then the infant was handed off to the pediatric team. Then the placenta was delivered manually as intact and complete. Uterus was externalized and cleared of all clots and debris's. Uterine incision was repaired with 0 Vicryl in a running locked fashion, second umbricating layer was placed with the same suture in running locked fashion. Excellent hemostasis achieved. Cul-de-sac and the pelvis was irrigated with warm normal saline and suctioned. Incision was checked of anesthetic again. Uterus was returned to the abdomen, parietal peritoneum was reapproximated with 3-0 Vicryl in a running fashion and the muscles were reapproximated in the same suture in a running fashion. All of the fascia and rectus muscles were hemostatic. Rectus fascia was reapproximated with 0 Vicryl starting from both columns meeting in the midline. Subcuticular fat tissue was brought together with 2-0 Vicryl in a running fashion, skin was closed with 4-0 Monocryl in a subcuticular cuticular fashion. The mom and baby tolerated procedure well. Sponge needle instrument count was correct x3. She was given 2 g of cefazolin before surgery. No complications happened, I was present during whole procedure. My real estate assistant was needed for retraction, hemostasis and aid during delivery of infant I attest to the content of the Intraoperative Record and any orders documented therein. Any exceptions are noted below.
[2024-09-01] MEDS ORDERED: KETOROLAC 30 MG/ML VIAL IV SCH (08:45)
[2024-09-01] MEDS ORDERED: PROMETHAZINE 6.25 MG/50.25 ML BAG IV PRN (09:11)
[2024-09-01] MEDS ORDERED: MoRPHine SULFATE PF 1 MG/ML 10 ML AMP/VIAL INT SPINAL ONE (09:11)
[2024-09-01] MEDS ORDERED: ePHEDrine sulfate 50 MG/ML AMP IV PRN (09:11)
[2024-09-01] MEDS ORDERED: NALBUPHINE HCL INJ 10 MG/ML AMP IV PRN (09:11)
[2024-09-01] MEDS ORDERED: LACTATED RINGER'S 500 ML IV PRN (09:11)
[2024-09-01] MEDS ORDERED: NALOXONE HCL 1 MG in SODIUM CHLORIDE 0.9% 1,000 ML IV PRN (09:11)
[2024-09-01] MEDS ORDERED: MEPERIDINE HCL 25 MG/ML CARP/VIAL IV PRN (09:11)
[2024-09-01] MEDS ORDERED: NALOXONE HCL 0.08 MG in SYRINGE 1.8 ML IV PRN (09:11)
[2024-09-01] MEDS ORDERED: NALOXONE HCL 0.4 MG/1 ML VIAL/CARP IV PRN (09:11)
[2024-09-01] MEDS ORDERED: MoRPHine SULFATE 2 MG/ML CARP IV PRN (09:11)
--- NOTE | 2024-09-01 09:12 | Anesthesiology Progress Note ---
Date of Service September 01, 2024 Anesthesia Post Procedure Vital Signs Vital Signs: Temp Pulse Resp BP Pulse Ox 09/01/24 09:09 87 92 09/01/24 09:07 86 99 09/01/24 09:06 65 109/55 L 09/01/24 09:02 95 09/01/24 09:02 95 H 09/01/24 09:02 70 107/60 09/01/24 08:57 61 100 09/01/24 08:52 64 99 09/01/24 08:47 60 99 09/01/24 08:43 58 L 111/56 L 09/01/24 08:42 59 L 99 09/01/24 05:47 36.8 C 18 09/01/24 05:43 75 109/72 Transfer of Care Handoff Completed per policy Notes Mental Status: alert / awake / arousable Nausea / Vomiting: adequately controlled Pain: adequately controlled Airway Patency, RR, SpO2: stable & adequate BP & HR: stable & adequate Hydration State: stable & adequate Neuraxial Anesthesia: was administered and sensory block is resolving Anesthetic Complications: no major complications apparent and Pt Satisfied with anesthetic care
[2024-09-01] MEDS ORDERED: DC INTRASPINAL MORPHINE SCH (09:15)
[2024-09-01] MEDS ORDERED: NO NARCOTICS OR SEDATIVES SCH (09:15)
[2024-09-01] MEDS ORDERED: SODIUM CHLORIDE 0.9% 1,000 ML IV SCH (09:15)
[2024-09-01] MEDS ORDERED: OXYTOCIN 10 UNITS/ML VIAL ONE (10:26)
--- OUTSIDE RECORDS SUMMARY | 2024-09-01 10:33 | External Medical Summary | Summary of Care ---
Author Name Unknown Organization [facility] Address [address] [place] [address] Phone [phone] Care Team Providers Care Miter Saw Operator Name Role Phone ManavPatsy broussard Daniel BLOOM Primary Care Provider Reason for Visit * Reason Comments Return Visit Encounter Details Date Type Department Care Team (Late st Contact Info) Description 07/27/2024 8:00 AM EDT Office Visit Gynecology/Obstetric s Rupinder Echols [address] [facility] [place] [address] Lynsey Stinson CRNP [address] [facility] [place] [address] Normal in third trimester*; Thyroid dysfunction in , unspecified trimester; Previous delivery affecting ; Need for prophylactic vaccination and inoculation against respiratory syncytial virus (RSV) Allergies No known active allergiesdocumented as of this encounter (statuses as of 07/27/2024) Medications Medication Sig Dispensed Refills Start Date End Date Status 28-0.8 MG Oral Tablet Take by mouth. Active documented as of this encounter (statuses as of 07/27/2024) Active Problems Problem Noted Date Diagnosed Date Normal 01/21/2024 Thyroid dysfunction in , unspecified tr imester 01/21/2024 Overview: S/p partial thyroidectomy. No medication at NOB. TSH every trimester. TSH Results: Lab Results Component Value Date/Time TSH - [facility] 2.46 10/06/2023 10:13 AM TSH - [facility] 2.03 12/18/2022 01:41 PM TSH - [facility] 3.67 10/24/2020 04:53 PM TSH - [facility] 2.22 07/22/2018 02:31 PM TSH - [facility] 1.95 03/04/2017 02:12 PM Previous delivery affecting 0 01/21/2024 Overview: ?TOLAC if spontaneous labor, otherwise repeat C/S H/O partial thyroidectomy 07/08/2018 Estimated Date of Delivery Comme nts Yes 09/03/2024 Based on last me nstrual period of 11/28/2023 documented as of this encounter (statuses as of 07/27/2024) Immunizations Name Administration Dates Next Due DTaP Dipth/Tet/Acell Pertussis (Infanrix), Peds 12/30/1991,05/18/1991,03/03/1991,10/29 H1N1 2009 Influenza, IM 09/28/2009 HIB PRP-T, 4 Dose, PF, IM (H iberix, ActHib) 12/30/1991,05/18/1991,03/15/1991,11/13 HPV Vaccine, 4-Valent 11/06/2009,07/03/2009,0602/2009 Hepatitis B, 0-19 yrs 01/11/1994,06/06/1993,03/17 IPV - Polio Virus Vaccine (Inact) 12/30/1991,,1990 MMR - Measles/Mumps/Rubella Vaccine 06/27/2003,0 12/30/1991 Meningococcal Conjugate Vacc ine (Menactra/Menveo) 04/20/2009,04/18/1992 RSV Vac., Bivalent, Perfusio n F, Pf,0.5 Ml (Abrysvo) 07/27/2024 Seasonal Influenza, PF, 6 M & above, IM , (FluLaval or Fluzone) 09/25/2022,10/05/2019,06/27/2003 Seasonal Influenza, Quadriva lent, No Preserve, IM 08/31/2018 Seasonal Influenza, Trivalen t, (IIV3), with Preserv, (Fluzone) 08/27/2017 TD - Tetanus/Diptheria (ADULT) 06/27/2005 TD, Preservative Free 10/12/2019 TDAP, Age 7 and older, IM (Adacel) 06/14/2024, Varicella Vaccine (Chicken Pox) 04/20/2009,06/27 documented as of this encounter Social History Tobacco Use Types Packs/Day Years Used Date Smoking Tobacco: Never Smokeless Tobacco: Never Comments:No passive smoke ex posures Alcohol Use Standard Drinks/Week Comments Not Currently 0 (1 standard drink = 0.6 oz pur e alcohol) socially PHQ-2 Answer Date Recorded PHQ Adult Total Score 0 12/18/2022 Hunger Vital Sign Answer Date Recorded Within the past 12 months, y ou worried that your food would run out before you got the money to buy more. Never true 10/06/20 23 Within the past 12 months, t he food you bought just didn't last and you didn't have money to get more. Never true 10/06/2023 [place] Depression Scale Answer Date Recorded [place] Depression Scale Total 1 07/13/2024 The thought of harming myself has occurred to me . Never 07/13/2024 Childcare Answer Date Recorded Do you feel overwhelmed with taking care of a child, family member or friend? No 10/06/2023 Does your family need help f inding childcare? (Household - for ages 0-17 years) Not on file 10/06/2023 Clothing Answer Date Recorded Have you been unable to get clothing when it was really needed? No 10/06/2023 Is your family able to get c lothes or diapers when needed? (Household - for ages 0-17 years) Not on file 10/06/2023 Personal Safety Answer Date Recorded Do you feel unsafe or have concerns for your saf ety? No 10/06/2023 Do you have concerns for you r family's safety? (Household - for ages 0-17 years) Not on file 10/06/2023 Utilities Answer Date Recorded Do you have trouble paying y our heating, water, or electric bill? No 10/06/2023 Is your family able to pay t he heat, water, or electric bill? (Household - for ages 0-17 years) Not on file 10/06/2023 Does your family have access to good internet? (Household - for ages 0-17 years) Not on file 10/06/2023 Employment Status Answer Date Recorded Are you unemployed or without regular income? No 10/06/2023 Does the household have a re gular source of income? (Household - for ages 0-17 years) Not on file 10/06/2023 Social Connections Answer Date Recorded How often do you feel lonely or isolated from th ose around you? Never 10/06/2023 Financial Resource Strain Answer Date R ecorded Do you have any trouble payi ng for your medications, or do you think you might in the future? No 10/06/2023 Does your family have troubl e paying for medicine? (Household - for ages 0-17 years) Not on file 10/06/2023 Transportation Needs Answer Date Record ed READ ONLY Do you have troubl e getting a ride to medical visits or work? Never True 10/06/2023 Does your family have a hard time getting a ride to doctors visits? (Household - for ages 0-17 years) Not on file 10/06/2023 Has lack of transportation k ept you from medical appointments, meetings, work, or from getting things needed for daily living? Check all that apply. (Adult - for ages 18 years and over) Not on file 10/06/2023 Do you (or your family) have trouble finding or paying for a ride (transportation)? (Household - for ages 0-17 years) Not on file 10/06/2023 Housing Stability Answer Date Recorded Do you currently live in a s helter or have no steady place to sleep at night? No 10/06/2023 READ ONLY Do you think you a re at risk of becoming homeless? No 10/06/2023 Does your family worry about paying for your home or becoming homeless? (Household - for ages 0-17 years) Not on file 1 12/06/2022 Are you homeless or worried that you might be in the future? (Adult - for ages 18 years and over) Not on file Are you (or your family) tigist eless or worried that you might be in the future? (Household - for ages 0-17 years) Not on file Food Insecurity Answer Date Recorded Do you need food for this week? No 10/06/2023 Are you able to get enough f ood for your family? (Household - for ages 0-17 years) Not on file 10/06/2023 Does your family need food t his week? (Household - for ages 0-17 years) Not on file 10/06/2023 Do you always have enough fo od for your family? (Household - for ages 0-17 years) Not on file 10/06/2023 Estimated Date of Delivery Comme nts Yes 09/03/2024 Based on last me nstrual period of 11/28/2023 Sex and Gender Information Value Date Recorded Sex Assigned at Female 06/15/2022 11:39 AM EDT Gender Identity Female 06/15/2022 11:39 AM EDT Sexual Orientation Straight 06/15/2022 11 :39 AM EDT Job Start Date Occupation Industry Not on file Not on file Not on file documented as of this encounter Last Filed Vital Signs Vital Sign Reading Time Taken Comments Blood Pressure 94/64 07/27/2024 7:53 AM EDT Pulse - - Temperature - - Respiratory Rate - - Oxygen Saturation - - Inhaled Oxygen Concentration - - Weight 73.5 kg (162 lb) 07/27/2024 7:53 AM EDT Height 159.4 cm (5' 2.75") 07/27/2024 7:53 AM ED T Body Mass Index 28.93 07/27/2024 7:53 AM EDT documented in this encounter Progress Notes * Lynsey Stinson CRNP - 07/27/2024 8:20 AM EDT 34w4d Having some BH contractions, sometimes they are painful. Occurring less than 4 times an hour. Certain she is adequately hydrated, at times thinks her nausea is from drinking too much. No other concerns. Would like RSV vaccine today. Baby is active. No contractions, bleeding, LOF. LEDY Pena documented in this encounter Nursing Notes * Tami Santillan LPN - 07/27/2024 10:35 AM EDT Patient here for ABRYSVO/RSV injection. Patient doing well no complaints. Injection given IM as ordered. Patient tolerated well. Patient to follow up as directed. Patient instructed to call if any complications. Patient verbalized understanding of instructions given and her follow up appt for MU Injection site: Right Deltoid Medication Source: Dispensed stock medication * Tami Santillan LPN - 07/27/2024 7:56 AM EDT 34w3d Ongoing bh ctx, getting stronger. Given labor instructions. documented in this encounter Plan of Treatment Upcoming Encounters Date Type Department Care Team (Late st Contact Info) Description 08/09/2024 8:45 AM EDT Office Visit Gynecology/Obstetrics [facility] E[facility]ols [address] [place] [address] Ronal Saldaña MD [address] [place] [id number] 08/16/2024 8:00 AM EDT Office Visit Gynecology/Obstetrics [facility]rd[facility]annan Echols [address] [place] [address] Lynsey Stinson CRNP [address] [place] [id number] 2024 8:15 AM EDT Office Visit Gynecology/Obstetrics [facility] Echols [address] [place] [address] Lynsey Stinson CRNP [address] [place] [address] 09/08/2024 8:30 AM EDT Office Visit Gynecology/Obstetrics [facility] Echols [address] [place] [address] Backer Lexy LEDY Alfonso [address] [place] [address] Health Maintenance Due Date Last Done Comments Depression Screening 12/18/2023 12/18/2022 COVID-19 Vaccine (2022-24 season) 2024 11/25/2021 Influenza Vaccine (FLU shot) (#1) 2024 09/15/2023, 09/25/2022, 10/05/2019, Additional history exists Pap Smear 07/22/2026 07/22/2023, 05/18, 06/27/2017 Cervical Cancer Screening 07/22/2028 HPV/Co-Test 07/22/2028 07/22/2023 DTap/Tdap Vaccines (9 - Td or Tdap) 06/14/2034 06/14/2024, 10/12/2019, 04/18/2009, Additional history exists Hepatitis B Vaccine Completed 01/11/1994, 06/06/1993, 03/30/1993 MENINGOCOCCAL (MENACTRA/MENVEO) Completed 04/20/2009, 04/18/1992 HPV (Gardasil) Vaccine Completed 9, 07/03/2009, 04/20/2009 Pneumococcal Vaccine: Pediatrics (0 to 5 Years) and At-Risk Patients (6 to 64 Years) Aged Out No longer eligible based on patient's age to complete this topic documented as of this encounter Medical Devices Not on filedocumented as of this encounter Visit Diagnoses Diagnosis Normal in third trimester- Primary Thyroid dysfunction in , unspecified trimester Previous delivery affecting Previous delivery, unspecified as to episode of care or not applicable Need for prophylactic vaccination and inoculation against respiratory syncytial virus (RSV) documented in this encounter Care Teams Miter Saw Operator Relationship Specialty Start Date End Date Patsy Singh DO [address] [place] [address] PCP - General Family Medicine 06/17/22 documented as of this encounter
--- OUTSIDE RECORDS SUMMARY | 2024-09-01 10:33 | External Medical Summary | Summary of Care ---
Author Name Unknown Organization [facility] Address [address] [place] [facility] [place] [address] Phone [phone] Care Team Providers Care [employer] Assistant Name Role Phone ManavPatsy broussard Daniel BLOOM Primary Care Provider Reason for Visit * Reason Comments Return Visit Encounter Details Date Type Department Care Team (Late st Contact Info) Description 08/16/2024 8:00 AM EDT Office Visit Gynecology/Obstetric s [facility]annan Echols [address] [place] [address] Lynsey Stinson CRNP [address] [place] [address] Normal in third trimester*; Thyroid dysfunction in , unspecified trimester; Previous delivery affecting Allergies No known active allergiesdocumented as of this encounter (statuses as of 08/16/2024) Medications Medication Sig Dispensed Refills Start Date End Date Status 28-0.8 MG Oral Tablet Take by mouth. Active documented as of this encounter (statuses as of 08/16/2024) Active Problems Problem Noted Date Diagnosed Date Normal 01/21/2024 Thyroid dysfunction in , unspecified tr imester 01/21/2024 Overview: S/p partial thyroidectomy. No medication at NOB. TSH every trimester. TSH Results: Lab Results Component Value Date/Time TSH - [facility] 2.46 10/06/2023 10:13 AM TSH - [facility] [...] as of this encounter (statuses as of 08/16/2024) Immunizations Name Administration Dates Next Due DTaP Dipth/Tet/Acell Pertussis (Infanrix), Peds 12/30/1991,05/18/1991,03/03/1991,10/29 H1N1 2008 Influenza, IM 09/28/2009 HIB PRP-T, 4 Dose, PF, IM (H iberix, ActHib) 12/30/1991,05/18/1991,03/15/1991,11/13 HPV Vaccine, 4-Valent 11/06/2009,07/03/2009,02/2009 Hepatitis B, 0-19 yrs 01/11/1994,06/06/1993,03/17 IPV - [...] money to get more. Never true 10/06/2023 [place] Depression Scale Answer Date Recorded [place] Depression Scale Total 1 07/13/2024 The thought [...] 18 years and over) Not on file 3 Are you (or your family) tigist eless [...] Sign Reading Time Taken Comments Blood Pressure 120/70 08/16/2024 8:00 AM EDT Pulse - - Temperature - - Respiratory Rate - - Oxygen Saturation - - Inhaled Oxygen Concentration - - Weight 75.3 kg (166 lb) 08/16/2024 8:00 AM EDT Height - - Body Mass Index 29.64 08/09/2024 8:51 AM EDT documented in this encounter Progress Notes * Lynsey Stinson CRNP - 08/16/2024 8:09 AM EDT 37w3d No concerns. Baby is active. No contractions or bleeding. C/s scheduled. LEDY Pena * Heidi Enriquez CMA - 08/16/2024 8:00 AM EDT 37w3d Denies any concerns documented in this encounter Plan of Treatment Upcoming Encounters Date Type Department Care Team (Late st Contact Info) Description 2024 8:15 AM EDT Office Visit Gynecology/Obstetrics [facility] [address] [facility] [place] [address] Lynsey Stinson CRNP [address] [place] [address] 09/08/2024 8:30 AM EDT Office Visit Gynecology/Obstetrics Rupinder Echols [address] [place] [address] Lexy Vale CRNP [address] [place] [address] Health Maintenance Due Date Last Done Comments Depression Screening 12/18/2023 12/18/2022 COVID-19 Vaccine ( season) 2024 11/25/2021 Influenza Vaccine (FLU shot) [...] to episode of care or not applicable documented in this encounter Care Teams [employer] Assistant Relationship Specialty Start Date End Date Patsy Singh DO [address] [place] [address] PCP - General Family Medicine 06/17/22 documented as of this encounter
--- OUTSIDE RECORDS SUMMARY | 2024-09-01 10:33 | External Medical Summary | Summary of Care ---
Author Name Unknown Organization [facility] Address [address] [facility] [place] [address] Phone [phone] Care Team Providers Care Surveyor Mine Name Role Phone ManavPatsy broussard Daniel BLOOM Primary Care Provider +1 [phone] Reason for Visit * Reason Comments Return Visit Encounter Details Date Type Department Care Team (Late st Contact Info) Description 08/09/2024 9:00 AM EDT Office Visit Gynecology/Obstetric s Rupinder Higueras [email or web address] [place] [address] Ronal Saldaña MD [email or web address] [place] [address] Normal in third trimester*; Thyroid dysfunction in , unspecified trimester; Previous delivery affecting Allergies No known active allergiesdocumented as of this encounter (statuses as of 08/09/2024) Medications Medication Sig Dispensed Refills Start Date End Date Status 28-0.8 MG Oral Tablet Take by mouth. Active documented as of this encounter (statuses as of 08/09/2024) Active Problems Problem Noted Date Diagnosed Date Normal 01/21/2024 Thyroid dysfunction in , unspecified tr imester 01/21/2024 Overview: S/p partial thyroidectomy. No medication at NOB. TSH every trimester. TSH Results: Lab Results Component Value Date/Time TSH - [facility] 2.46 10/06/2023 10:13 AM TSH - [facility] [...] as of this encounter (statuses as of 08/09/2024) Immunizations Name Administration Dates Next Due DTaP [...] money to get more. Never true 10/06/2023 [place] Depression Scale Answer Date Recorded [place] Depression Scale Total 1 07/13/2024 The thought [...] Sign Reading Time Taken Comments Blood Pressure 122/68 08/09/2024 8:51 AM EDT Pulse - - Temperature - - Respiratory Rate - - Oxygen Saturation - - Inhaled Oxygen Concentration - - Weight 73.9 kg (163 lb) 08/09/2024 8:51 AM EDT Height 159.4 cm (5' 2.75") 08/09/2024 8:51 AM ED T Body Mass Index 29.1 08/09/2024 8:51 AM EDT documented in this encounter Progress Notes * Ronal Saldaña MD - 08/09/2024 9:16 AM EDT Pt doing well No complaints H&P done GBS obtained * Rachele Hilton LPN - 08/09/2024 8:49 AM EDT 36w3d Needs gbs today Pre-op for csection documented in this encounter H&P Notes * Ronal Saldaña MD - 08/09/2024 9:18 AM EDT [facility] [address] [place] [address] Appt line [phone] Kelly Bassett is a 33 year old year old year old at 36w3d Patient is . EstimatedDate of Delivery: 09/03/24 Pt here for preop H&P Pt wishes to have repeat c/sec OB History Para Term AB Living 2 1 1 0 0 1 SAB IAB Ectopic Multiple Live Births 0 0 0 0 1 # Outcome Date GA Lbr Obie/2nd Weight Sex Type Anes PTL Lv 2 Current 1 Term 06/04/22 3.459 kg (7 lb 10 oz) F CS-Unspec Spinal MAK Date Labor Sex Delivery Anesth Del Comments GA Length Weight Type Site E Marketing Specialist History: Menstrual Index: // days. Denies h/o STDs and abnormal Paps. Her past medical/surgical histories and current medications are recorded in the electronic record. Past Surgical History: Procedure Laterality Date DELIVERY 05/2022 DENTAL SURGERY PROCEDURE NEC PARTIAL REMOVAL OF THYROID LOBE 2005 Partial thyroidectomy due to cystic mass- benign-rt Family History Problem Relation Name Age of Onset No Known Problems Mother Hypertension Father Allergies Father Environmental allergies, tomato allergy, Other (Other) Father Nephrotic syndrome, questionably related to Moderna COVID vaccine No Known Problems Sister No Known Problems Brother Diabetes Grandmother (Maternal) Hypertension Grandmother (Maternal) Heart failure Grandmother (Maternal) Heart attack Grandfather (Maternal) Colon cancer Grandmother (Paternal) 64 Other (Colon cancer) Grandmother (Paternal) Other (ALS) Grandfather (Paternal) Breast Cancer Aunt (Maternal) History Social History Socioeconomic History Marital status: Spouse name: Not on file Number of children: Not on file Years of education: Not on file Highest education level: Not on file Occupational History 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 (Adult - for ages 18 years and over): No Does your family have trouble paying for medicine? (Household - for ages 0-17 years): Not on file Food Insecurity: No Food Insecurity (10/06/2023) Food Insecurity Do you need food for this week? (Adult - for ages 18 years and over): No Are you able to get enough food for your family? (Household - for ages 0-17 years): Not on file Does your family need food this week? (Household - for ages 0-17 years): Not on file Do you always have enough food for your family? (Household - for ages 0-17 years): Not on file Transportation Needs: No Transportation Needs (10/06/2023) Transportation Needs Do you have trouble getting a ride to medical visits or work? (Adult - for ages 18 years and over):Never True Does your family have a hard time getting a ride to doctors visits? (Household - for ages 0-17 years): Not on file Has lack of transportation kept you from medical appointments, meetings, work, or from getting things needed for daily living? Check all that apply. (Adult - for ages 18 years and over): Not on file Do you (or your family) have trouble finding or paying for a ride (transportation)? (Household - for ages 0-17 years): Not on file Social Connections: Socially Integrated (10/06/2023) Social Connections How often do you feel lonely or isolated from those around you? (Adult - for ages 18 years and over): Never Housing Stability: Low Risk (10/06/2023) Housing Stability Do you currently live in a retirement or have no steady place to sleep at night? (Adult - for ages 18 years and over): No Do you think you are at risk of becoming homeless? (Adult - for ages 18 years and over): No Does your family worry about paying for your home or becoming homeless? (Household - for ages 0-17 years): Not on file Are you homeless or worried that you might be in the future? (Adult - for ages 18 years and over): Not on file Are you (or your family) homeless or worried that you might be in the future? (Household - for ages0-17 years): Not on file @[facility]@ Physical Exam: BP 122/68 | Ht 1.594 m (5' 2.75") | Wt 73.9 kg (163 lb) | LMP 11/28/2023 | BMI 29.10 kg/m | BSA 1.81 m CV: S1, S2. Regular rate and Rhythm Lungs: Clear to auscultation bilaterally. Abdomen: Soft Extremities: Soft non tender calves bilaterally. A/P: 33 year old year old Prior c/sec Wishes to have repeat c/sec We have discussed the risk alternatives and complications of surgery including more surgery to correct complication,risk of anesthesia,infection,damage to internal organs and . We have also discussed the possibility that pt's present situation may not change. Pt is aware and wishes to proceed to surgery. Consent is signed Ronal Saldaña MD 08/09/2024 9:18 AM documented in this encounter Plan of Treatment Upcoming Encounters Date Type Department Care Team (Late st Contact Info) Description 08/16/2024 8:00 AM EDT Office Visit Gynecology/Obstetrics Rupinder Echols [address] [place] [address] Lynsey Stinson CRNP [address] [place] [address] 2024 8:15 AM EDT Office Visit Gynecology/Obstetrics Rupinder Echols [address] [place] [address] Lynsey Stinson CRNP [address] [place] [address] 09/08/2024 8:30 AM EDT Office Visit Gynecology/Obstetrics Rupinder Echols [address] [place] [address] AkankshaRajivLexyLEDY Finch [address] [place] [address] Pending Results Name Type Priority Associated Diagnoses Date /Time GROUP B STREP CULTURE/PCR Lab Routine Normal in third trimester 08/09/2024 9:28 AM EDT Scheduled Orders Name Type Priority Associated Diagnoses Orde r Schedule GROUP B STREP CULTURE/PCR Lab Routine Normal in third trimester Expected: 08/09/2024, Expires: 08/09/2025 Health Maintenance Due Date Last Done Comments [...] applicable documented in this encounter Care Teams Surveyor Mine Relationship Specialty Start Date End Date Patsy Singh DO [address] [place] [address] PCP - General Family Medicine 06/17/22 documented as of this encounter
--- OUTSIDE RECORDS SUMMARY | 2024-09-01 10:33 | External Medical Summary | Summary of Care ---
Author Name Unknown Organization [facility] Address [address] [place] [address] Phone [phone] Care Team Providers Care Dirt Contractor Name Role Phone ManavPatsy broussard Daniel BLOOM Primary Care Provider [phone] Reason for Visit * Reason Comments Return Visit Encounter Details Date Type Department Care Team (Late st Contact Info) Description 07/27/2024 8:00 AM EDT Office Visit Gynecology/Obstetric s Rupinder Echols [address] [facility] [place] [address] Lynsey Stinson CRNP [address] [place] [address] Normal in third trimester*; Thyroid dysfunction in [...] money to get more. Never true 10/06/2023 [place] Depression Scale Answer Date Recorded [place] Depression Scale Total 1 07/13/2024 The thought [...] Notes * Tami Santillan LPN - 07/27/2024 7:56 AM EDT 34w3d Ongoing bh ctx, getting stronger. Given labor instructions. documented in this encounter Plan of Treatment Upcoming Encounters Date Type Department Care Team (Late st Contact Info) Description 08/09/2024 8:45 AM EDT Office Visit Gynecology/Obstetrics [facility] [address] [place] [address] Ronal Saldaña MD [address] [place] [address] 08/16/2024 8:00 AM EDT Office Visit Gynecology/Obstetrics Byrdanastasia Echols [address] [place] [address] Lynsey Stinson CRNP [address] [place] [address] 2024 8:15 AM EDT Office Visit Gynecology/Obstetrics [facility] [address] [place] [address] Lynsey Stinson CRNP [address] [place] [address] 09/08/2024 8:30 AM EDT Office Visit Gynecology/Obstetrics [facility] [address] [place] [address] Lexy Vale CRNP [address] [place] [address] Health Maintenance Due Date Last Done Comments [...] Completed 04/20/2009, 04/18/1992 HPV (Gardasil) Vaccine Completed , 07/03/2009, 04/20/2009 Pneumococcal Vaccine: Pediatrics (0 to [...] (RSV) documented in this encounter Care Teams Dirt Contractor Relationship Specialty Start Date End Date Patsy Singh DO [address] [place] [address] PCP - General Family Medicine 06/17/22 documented as of this encounter
--- OUTSIDE RECORDS SUMMARY | 2024-09-01 10:33 | External Medical Summary | Summary of Care ---
Author Name Unknown Organization [facility] Address [address] [facility] [place] [address] Phone [phone] Care Team Providers Care Washer And Crusher Tender Name Role Phone ManavPatsy broussard Daniel BLOOM Primary Care Provider [phone] Reason for Visit * Reason Comments Return Visit Encounter Details Date Type Department Care Team (Late st Contact Info) Description 2024 8:15 AM EDT Office Visit Gynecology/Obstetric s Byrdshannan Echols [address] [facility] [place] [address] Lysney Stinson CRNP [address] [facility] [place] [address] Normal in third trimester*; Thyroid dysfunction in , unspecified trimester; Previous delivery affecting Allergies No known active allergiesdocumented as of this encounter (statuses as of 2024) Medications Medication Sig Dispensed Refills Start Date End Date Status 28-0.8 MG Oral Tablet Take by mouth. Active documented as of this encounter (statuses as of 2024) Active Problems Problem Noted Date Diagnosed Date Normal 01/21/2024 Thyroid dysfunction in , unspecified tr imester 01/21/2024 Overview: S/p partial thyroidectomy. No medication at NOB. TSH every trimester. TSH Results: Lab Results Component Value Date/Time TSH - [facility] 2.46 10/06/2023 10:13 AM TSH - [facility] [...] as of this encounter (statuses as of 2024) Immunizations Name Administration Dates Next Due DTaP [...] n F, Pf,0.5 Ml (Abrysvo) 07/27/2024 Seasonal Influenza Vac., MDV , IM, 0.5 mL (Fluzone) 08/27/2017 Seasonal Influenza, PF, 6 M & above, IM , (FluLaval or Fluzone) 09/25/2022,10/05/2019,06/27/2003 Seasonal Influenza, Quadriva lent, No Preserve, IM 08/31/2018 TD - Tetanus/Diptheria (ADULT) 06/27/2005 TD, Preservative [...] money to get more. Never true 10/06/2023 [place] Depression Scale Answer Date Recorded [place] Depression Scale Total 1 07/13/2024 The thought [...] Sign Reading Time Taken Comments Blood Pressure 116/74 2024 8:18 AM EDT Pulse - - Temperature - - Respiratory Rate - - Oxygen Saturation - - Inhaled Oxygen Concentration - - Weight 75.4 kg (166 lb 3.2 oz) 2024 8:18 A M EDT Height - - Body Mass Index 29.68 08/09/2024 8:51 AM EDT documented in this encounter Progress Notes * Lynsey Stinson CRNP - 2024 8:36 AM EDT 38w4d Reports some brown discharge over the weekend, some mild contractions. Today she feels fine. She reports good FM. Denies red bleeding, ROM. Asking for cervical check. Has c/s scheduled for 09/01. Development Representative Documentation Provider requested picking machine operator. Name of picking machine operator: LEDY Barnard * Heidi Enriquez CMA - 2024 8:18 AM EDT 38w4d Brown discharge and contractions Friday-Friday. Possible loss of mucus plug Requesting cervical check documented in this encounter Plan of Treatment Upcoming Encounters Date Type Department Care Team (Late st Contact Info) Description 08/31/2024 10:15 AM EDT Office Visit Gynecology/Obstetrics [facility] [address] [place] [address] Lynsey Stinson CRNP [address] [place] [address] 09/08/2024 8:30 AM EDT Office Visit Gynecology/Obstetrics [facility] [address] [place] [address] Lexy Vale CRNP [address] [place] [address] Health Maintenance Due Date Last Done Comments [...] applicable documented in this encounter Care Teams Washer And Crusher Tender Relationship Specialty Start Date End Date Patsy Singh DO [address] [place] [address] PCP - General Family Medicine 06/17/22 documented as of this encounter
--- OUTSIDE RECORDS SUMMARY | 2024-09-01 10:33 | External Medical Summary ---
Author Name Unknown Address Unknown Organization K01:[facility] [place] [facility] [address] [place] [address] Laboratory Report Ordering Provider Test Date Status MADHU GEORGE 08/09/2024 09:28:34 Final Observation Date Value Abnormality Reference (Units ) Status Streptococcus agalactiae DNA [Presence] in Specimen by KVNG with probe detection 08/09/2024 09:28:34 Negative Negative Final No Group B Streptococcus det ected by culture-enhanced PCR (amplified probe). GBS GBSCT - [facility] 08/09/2024 09:28:34 0.0 Final GBS SPCCT - [facility] 08/09/2024 09:28:34 29.9 Final Performing Location [facility] [place] - [facility] [address] [place] [address]
--- OUTSIDE RECORDS SUMMARY | 2024-09-01 10:33 | External Medical Summary | Summary of Care ---
Author Name Unknown Organization [facility] Address [address] [place] [address] Phone [phone] Care Team Providers Care Food Aide Name Role Phone ManavPatsy broussard Daniel BLOOM Primary Care Provider [phone] Reason for Visit * Reason Comments Return Visit Encounter Details Date Type Department Care Team (Late st Contact Info) Description 08/31/2024 10:15 AM EDT Office Visit Gynecology/Obstetric s Byrdshannan Echols [address] [facility] [place] [address] Lynsey Stinson CRNP [address] [place] [address] Normal in third trimester*; Thyroid dysfunction in , unspecified trimester; Previous delivery affecting Allergies No known active allergiesdocumented as of this encounter (statuses as of 08/31/2024) Medications Medication Sig Dispensed Refills Start Date End Date Status 28-0.8 MG Oral Tablet Take by mouth. Active documented as of this encounter (statuses as of 08/31/2024) Active Problems Problem Noted Date Diagnosed Date Normal 01/21/2024 Thyroid dysfunction in , unspecified tr imester 01/21/2024 Overview: S/p partial thyroidectomy. No medication at NOB. TSH every trimester. TSH Results: Lab Results Component Value Date/Time TSH - [facility] 2.46 10/06/2023 10:13 AM [facility]SH - [facility] [...] as of this encounter (statuses as of 08/31/2024) Immunizations Name Administration Dates Next Due DTaP [...] money to get more. Never true 10/06/2023 [place] Depression Scale Answer Date Recorded [place] Depression Scale Total 1 07/13/2024 The thought [...] Sign Reading Time Taken Comments Blood Pressure 110/82 08/31/2024 10:12 AM EDT Pulse - - Temperature - - Respiratory Rate - - Oxygen Saturation - - Inhaled Oxygen Concentration - - Weight 76.7 kg (169 lb) 08/31/2024 10:12 AM EDT Height 159.4 cm (5' 2.75") 08/31/2024 10:12 AM E DT Body Mass Index 30.18 08/31/2024 10:12 AM EDT documented in this encounter Progress Notes * Lynsey Stinson CRNP - 08/31/2024 10:24 AM EDT 39w4d No concerns. C/s scheduled for tomorrow. Aware to call this afternoon for time of arrival. LEDY Pena documented in this encounter Nursing Notes * Tami Santillan LPN - 08/31/2024 10:17 AM EDT 39w4d Csection tomorrow. documented in this encounter Plan of Treatment Upcoming Encounters Date Type Department Care Team (Late st Contact Info) Description 09/08/2024 8:30 AM EDT Office Visit Gynecology/Obstetrics Rupinder Echols [address] [place] [address] Lexy Vale CRNP [address] [place] [address] Health Maintenance Due Date Last Done Comments [...] applicable documented in this encounter Care Teams Food Aide Relationship Specialty Start Date End Date Patsy Singh DO [address] [place] [address] PCP - General Family Medicine 06/17/22 documented as of this encounter
--- OUTSIDE RECORDS SUMMARY | 2024-09-01 10:34 | External Medical Summary | Summary of Care ---
Author Name Unknown Organization [facility] Address [address] [facility] [address] Phone [phone] Care Team Providers Care Wheel Molder Name Role Phone Patsy Singh DO Primary Care Provider [phone] Encounter Details Date Type Department Care Team (Late st Contact Info) Description 07/01/2024 Telephone Gynecology/Obstetrics [facility] [address] [place] [address] Lynsey Stinson CRNP [address] [place] [address] Allergies No known active allergiesdocumented as of this encounter (statuses as of 07/07/2024) Medications Medication Sig Dispensed Refills Start Date End Date Status 28-0.8 MG Oral Tablet Take by mouth. Active documented as of this encounter (statuses as of 07/07/2024) Active Problems Problem Noted Date Diagnosed Date [...] as of this encounter (statuses as of 07/07/2024) Immunizations Name Administration Dates Next Due DTaP Dipth/Tet/Acell Pertussis (Infanrix), Peds 12/30/1991,05/18/1991,03/03/1991,10/29 H1N1 2009 Influenza, IM 09/28/2009 HIB PRP-T, 4 Dose, PF, IM (H iberix, ActHib) 12/30/1991,05/18/1991,03/15/1991,11/13 HPV Vaccine, 4-Valent 11/06/2009,07/03/2009,02/2009 Hepatitis B, 0-19 yrs 01/11/1994,06/06/1993,03/17 IPV - Polio Virus Vaccine (Inact) 12/30/1991,,1990 MMR - Measles/Mumps/Rubella Vaccine 06/27/2003,0 12/30/1991 Meningococcal Conjugate Vacc ine (Menactra/Menveo) 04/20/2009,04/18/1992 Seasonal Influenza, PF, 6 M & above, IM , (FluLaval or Fluzone) 09/25/2022,10/05/2019,06/27/2003 Seasonal Influenza, Quadriva lent, No Preserve, IM 08/31/2018 Seasonal Influenza, Split, I IV3, With Preserve, Inj 08/27/2017 TD - Tetanus/Diptheria (ADULT) 06/27/2005 TD, [...] money to get more. Never true 10/06/2023 [place] Depression Scale Answer Date Recorded [place] Depression Scale Total 1 01/21/2024 The thought of harming myself has occurred to me . Never 01/21/2024 Childcare Answer Date Recorded Do you feel [...] on file documented as of this encounter Miscellaneous Notes * Telephone Encounter - Heidi Enriquez MED ASSIST - 07/01/2024 2:57 PM EDT Patient handed in [facility] papers. Papers filled out and placed in triage. documented in this encounter Plan of Treatment Upcoming Encounters Date Type Department Care Team (Late st Contact Info) Description 07/13/2024 3:45 PM EDT Office Visit Gynecology/Obstetrics [facility] [address] [place] [address] Kandy White PA-C [address] [place] [address] [place] [address] 07/27/2024 8:00 AM EDT Office Visit Gynecology/Obstetrics [facility] [address] [place] [address] Lynsey Stinson CRNP [address] [place] [address] 08/09/2024 8:45 AM EDT Office Visit Gynecology/Obstetrics [facility] [address] [place] [address] Ronal Saldaña MD [address] [place] [address] 08/16/2024 8:00 AM EDT Office Visit Gynecology/Obstetrics [facility] [address] [place] [address] Lynsey Stinson CRNP [address] [place] [address] 2024 8:15 AM EDT Office Visit Gynecology/Obstetrics [facility] [address] [place] [address] Lynsey Stinson CRNP [address] [place] [address] Health Maintenance Due Date Last Done Comments COVID-19 Vaccine ( season) 2023 11/25/2021 Depression Screening 12/18/2023 12/18/2022 Influenza Vaccine (FLU shot) (#1) 2024 09/15/2023, 09/25/2022, 10/05/2019, Additional history exists Pap Smear 07/22/2026 07/22/2023, 05/18, 06/27/2017 Cervical Cancer Screening 07/22/2028 HPV/Co-Test 07/22/2028 07/22/2023 DTaP,Tdap,and Td Vaccines (9 - Td or Tdap) 06/14/2034 [...] Not on filedocumented as of this encounter Care Teams Wheel Molder Relationship Specialty Start Date End Date Patsy Singh DO [address] [place] [address] PCP - General Family Medicine 06/17/22 documented as of this encounter
--- OUTSIDE RECORDS SUMMARY | 2024-09-01 10:34 | External Medical Summary | Summary of Care ---
Author Name Unknown Organization [facility] Address [address] [place] [address] Phone [phone] Care Team Providers Care Wafer Fab Technician Name Role Phone Patsy Singh DO Primary Care Provider [phone] Reason for Visit * Reason Comments Return Visit Encounter Details Date Type Department Care Team (Late st Contact Info) Description 07/13/2024 3:45 PM EDT Office Visit Gynecology/Obstetric s [facility] [address] [facility] [place] [address] Kandy White PA-C [address] [place] [address] Normal in third trimester*; Previous delivery affecting ; Thyroid dysfunction in , unspecified trimester Allergies No known active allergiesdocumented as of this encounter (statuses as of 07/13/2024) Medications Medication Sig Dispensed Refills Start Date End Date Status 28-0.8 MG Oral Tablet Take by mouth. Active documented as of this encounter (statuses as of 07/13/2024) Active Problems Problem Noted Date Diagnosed Date Normal 01/21/2024 Thyroid dysfunction in , unspecified tr imester 01/21/2024 Overview: S/p partial thyroidectomy. No medication at NOB. TSH every trimester. TSH Results: Lab Results Component Value Date/Time TSH - [facility] 2.46 10/06/2023 10:13 AM TSH - [...] as of this encounter (statuses as of 07/13/2024) Immunizations Name Administration Dates Next Due DTaP [...] money to get more. Never true 10/06/2023 [place] Depression Scale Answer Date Recorded [place] Depression Scale Total 1 01/21/2024 The thought [...] Sign Reading Time Taken Comments Blood Pressure 108/62 07/13/2024 3:38 PM EDT Pulse - - Temperature - - Respiratory Rate - - Oxygen Saturation - - Inhaled Oxygen Concentration - - Weight - - Height - - Body Mass Index - - documented in this encounter Progress Notes * Kandy White PA-C - 07/13/2024 3:47 PM EDT Kelly Bassett is a 33 year old female here for her routine OB appointment at 32w4d Her Estimated Date of Delivery: 09/03/24 Scheduled for ERCS 09/01/2024 REVIEW OF SYSTEMS She affirms movement. Denies vaginal bleeding, LOF, regular/painful contractions, N/V, headaches, vision changes, chest pain, RUQ pain. [place] Depression Scale [place] Depression Scale Total: 1 [place] suicide question and score: Score of 3 = Yes, quite often. Score of 2 = Sometimes. Score of 1 = Hardly ever The thought of harming myself has occurred to me.: 0 PHYSICAL EXAM Filed Vitals: 07/13/24 1538 BP: 108/62 +FHT 150s Fundal height 32 cm ASSESSMENT/PLAN Normal in third trimester (Primary) Previous delivery affecting Thyroid dysfunction in , unspecified trimester Supervision of - labor precautions and kick counts reviewed RTO in 2 weeks Kandy White PA-C 07/13/2024 * Radha Navarro LPN - 07/13/2024 3:38 PM EDT 32w4d Denies vaginal bleeding/rom + movement documented in this encounter Plan of Treatment Upcoming Encounters Date Type Department Care Team (Late st Contact Info) Description 07/27/2024 8:00 AM EDT Office Visit Gynecology/Obstetrics [facility] [address] [place] [address] Lynsey Stinson CRNP [address] [place] [address] 08/09/2024 8:45 AM EDT Office Visit Gynecology/Obstetrics [facility] [address] [place] [address] Ronal Saldaña MD [address] [place] [address] 08/16/2024 8:00 AM EDT Office Visit Gynecology/Obstetrics [facility] [address] [place] [address] Lynsey Stinson CRNP [address] [place] [address] 2024 8:15 AM EDT Office Visit Gynecology/Obstetrics [facility] [address] [place] [address] Lynsey Stinson CRNP [address] [place] [address] 09/08/2024 8:30 AM EDT Office Visit Gynecology/Obstetrics [facility] [address] [place] [address] Lexy Vale CRNP [address] [place] [address] Health Maintenance Due Date Last Done Comments [...] Diagnoses Diagnosis Normal in third trimester- Primary Previous delivery affecting Previous delivery, unspecified as to episode of care or not applicable Thyroid dysfunction in , unspecified trimester documented in this encounter Care Teams Wafer Fab Technician Relationship Specialty Start Date End Date Patsy Singh DO [address] [place] [address] PCP - General Family Medicine 06/17/22 documented as of this encounter
--- OUTSIDE RECORDS SUMMARY | 2024-09-01 10:34 | External Medical Summary | Summary of Care ---
Author Name Unknown Organization [facility] Address [address] [place] [address] Phone [phone] Care Team Providers Care Assistance Representative Name Role Phone ManavPatsy broussard Daniel BLOOM Primary Care Provider [phone] Reason for Visit * Reason Comments Return Visit Encounter Details Date Type Department Care Team (Late st Contact Info) Description 06/14/2024 8:30 AM EDT Office [facility] [address] [facility] [address] Lexy Vale CR[facility] [address] [place] [address] Normal in third trimester*; Thyroid dysfunction in , unspecified trimester; Previous delivery affecting ; Need for prophylactic vaccination with combined kelpnsbkqk-yxdhvvz-bh rtussis (DTP) vaccine Allergies No known active allergiesdocumented as of this encounter (statuses as of 06/14/2024) Medications Medication Sig Dispensed Refills Start Date End Date Status 28-0.8 MG Oral Tablet Take by mouth. Active documented as of this encounter (statuses as of 06/14/2024) Active Problems Problem Noted Date Diagnosed Date [...] as of this encounter (statuses as of 06/14/2024) Immunizations Name Administration Dates Next Due DTaP [...] money to get more. Never true 10/06/2023 [place] Depression Scale Answer Date Recorded [place] Depression Scale Total 1 01/21/2024 The thought [...] Sign Reading Time Taken Comments Blood Pressure 104/60 06/14/2024 8:30 AM EDT Pulse - - Temperature - - Respiratory Rate - - Oxygen Saturation - - Inhaled Oxygen Concentration - - Weight 69.9 kg (154 lb) 06/14/2024 8:30 AM EDT Height - - Body Mass Index 27.5 03/19/2024 2:09 PM EDT documented in this encounter Progress Notes * Heidi Enriquez MED ASSIST - 06/14/2024 8:47 AM EDT Patient here for tdap injection. Patient doing well no complaints. Injection given IM as ordered. Patient tolerated well. Patient to follow up as directed. Patient instructed to call if any complications. Patient verbalized understanding of instructions given and her follow up appt for MU. Injection site: Right Deltoid Medication Source: Dispensed stock medication * Radha Navarro LPN - 06/14/2024 8:29 AM EDT 28w3d Denies vaginal bleeding/rom + movement Gtt today Tdap today Treverdayanna goncalves * Lexy Vale CRNP - 06/14/2024 8:24 AM EDT 28w3d Completing 3rd trimester labs. Notes BH ctx, knows she needs to hydrate more. No leaking or bleeding. Baby is active. Reviewed FKCand labor precautions. Tdap today. 2 week return LEDY Young documented in this encounter Plan of Treatment Upcoming Encounters Date Type Department Care Team (Late st Contact Info) Description 06/29/2024 8:00 AM EDT Office Visit Gynecology/Obstetrics [facility] [address] [place] [address] Lynsey Stinson CRNP [address] [place] [address] 08/09/2024 8:45 AM EDT Office Visit Gynecology/Obstetrics [facility] [address] [place] [address] Ronal Saldaña MD [address] [place] [address] 08/23/2024 8:00 AM EDT Office Visit Gynecology/Obstetrics [facility] [address] [place] [address] Pilar Elizabeth PA-C [address] [place] [address] Health Maintenance Due Date Last Done Comments [...] or not applicable Need for prophylactic vaccination with combined wbydyqeuyk-edruyjk-wnlpwugkz (DTP) vaccine documented in this encounter Care Teams Assistance Representative Relationship Specialty Start Date End Date Patsy Singh DO [address] [place] [address] PCP - General Family Medicine 06/17/22 documented as of this encounter
--- OUTSIDE RECORDS SUMMARY | 2024-09-01 10:34 | External Medical Summary | Summary of Care ---
Author Name Unknown Organization [facility] Address [address] [place] [facility] [place] [place] [address] Phone [phone] Care Team Providers Care Tool And Die Maker Apprentice Name Role Phone ManavPatsy broussard Daniel BLOOM Primary Care Provider [phone] Reason for Visit * Reason Comments Return Visit Encounter Details Date Type Department Care Team (Late st Contact Info) Description 06/29/2024 8:00 AM EDT Office Visit Gynecology/Obstetric s [facility] [address] [facility] [place] [address] Lynsey Stinson CRNP [address] [facility] [place] [address] Normal in third trimester*; Thyroid dysfunction in , unspecified trimester; Previous delivery affecting Allergies No known active allergiesdocumented as of this encounter (statuses as of 06/29/2024) Medications Medication Sig Dispensed Refills Start Date End Date Status 28-0.8 MG Oral Tablet Take by mouth. Active documented as of this encounter (statuses as of 06/29/2024) Active Problems Problem Noted Date Diagnosed Date Normal 01/21/2024 Thyroid dysfunction in , unspecified tr imester 01/21/2024 Overview: S/p partial thyroidectomy. No medication at NOB. TSH every trimester. TSH Results: Lab Results Component Value Date/Time TSH - [facility] 2.46 10/06/2023 10:13 AM TSH - [facility] [...] as of this encounter (statuses as of 06/29/2024) Immunizations Name Administration Dates Next Due DTaP [...] money to get more. Never true 10/06/2023 [place] Depression Scale Answer Date Recorded [place] Depression Scale Total 1 01/21/2024 The thought [...] Sign Reading Time Taken Comments Blood Pressure 104/58 06/29/2024 8:02 AM EDT Pulse - - Temperature - - Respiratory Rate - - Oxygen Saturation - - Inhaled Oxygen Concentration - - Weight 69.9 kg (154 lb 3.2 oz) 06/29/2024 8:02 A M EDT Height - - Body Mass Index 27.53 03/19/2024 2:09 PM EDT documented in this encounter Progress Notes * Lynsey Stinson CRNP - 06/29/2024 8:17 AM EDT 30w4d No concerns. Baby is active, discussed FKC. No contractions, bleeding, LOF. Considering TOLAC, but agreeable to schedule repeat c/s. Message to Tessy for scheduling. 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 documented in this encounter Plan of Treatment Upcoming Encounters Date Type Department Care Team (Late st Contact Info) Description 07/13/2024 3:45 PM EDT Office Visit Gynecology/Obstetrics [facility] [address] [place] [address] Kandy White PA-C [address] [place] [address] [place] [address] 07/27/2024 8:00 AM EDT Office Visit Gynecology/Obstetrics [facility] [address] [place] [address] Lynsey Stinson CRNP [address] [place] [address] 08/09/2024 8:45 AM EDT Office Visit Gynecology/Obstetrics [facility] [address] [place] [address] Ronal Saldaña MD [address] [place] [address] 08/16/2024 8:00 AM EDT Office Visit Gynecology/Ob[facility]s [facility] [address] [place] [address] Lynsey Stinson CRNP [address] [place] [address] 2024 8:15 AM EDT Office Visit Gynecology/Obstetrics [facility] [address] [place] [address] Lynsey Stinson CRNP [address] [place] [address] Health Maintenance Due Date Last Done Comments [...] applicable documented in this encounter Care Teams Tool And Die Maker Apprentice Relationship Specialty Start Date End Date Patsy Singh DO [address] [place] [address] PCP - General Family Medicine 06/17/22 documented as of this encounter
--- OUTSIDE RECORDS SUMMARY | 2024-09-01 10:34 | External Medical Summary | Summary of Care ---
Author Name Unknown Organization [facility] Address [address] [place] [address] Phone [phone] Care Team Providers Care Sr. Director Name Role Phone Samantha Patsy Daniel BLOOM Primary Care Provider [phone] Reason for Visit * Reason Comments Outpatient Testing Encounter Details Date Type Department Care Team (Late st Contact Info) Description 06/14/2024 8:20 AM EDT Laboratory [facility], [facility] [address] [facility] [id number] [facility] [address] [place] [address] Normal in second trimester; Thyroid dysfunction in , unspecified trimester; [employer] Other*[id number] Allergies No known active allergiesdocumented as of [...] Lab Results Component Value Date/Time TSH - [facility] 2.46 10/06/2023 10:13 AM TSH - [...] money to get more. Never true 10/06/2023 [place] Depression Scale Answer Date Recorded [place] Depression Scale Total 1 01/21/2024 The thought [...] on file documented as of this encounter Plan of Treatment Upcoming Encounters Date Type Department Care Team (Late st Contact Info) Description 06/29/2024 8:00 AM EDT Office Visit Gynecology/Obstetrics [facility] [address] [place] [address] Lynsey Stinson CRNP [address] [place] [address] 08/09/2024 8:45 AM EDT Office Visit Gynecology/Obstetrics [facility] [address] [place] [address] Ronal Saldaña MD [address] [place] [address] 08/23/2024 8:00 AM EDT Office Visit Gynecology/Obstetrics [facility] [address] [place] [address] Pilar Elizabeth PA-C [address] [place] [address] Pending Results Name Type Priority Associated Diagnoses Date /Time 50-G GESTATIONAL GLUCOSE, 1 HOUR Lab Routine Normal in second trimester 06/14/2024 9:25 AM EDT CBC WITH WBC DIFFERENTIAL AND ANEMIA REFLEX WORKUP Lab Routine Normal in second trimester 06/14/2024 9:25 AM EDT SYPHILIS ANTIBODY SCREEN WITH REFLEX TO RPR Lab Routine Normal in second trimester 06/14/2024 9:25 AM EDT TSH WITH FREE T4 IF INDICATED Lab Routine Thyroid dysfunction in , unspecified trimester 06/14/2024 9:25 AM EDT ANEMIA CBC Lab Routine Normal in second trimester 06/14/2024 9:25 AM EDT DIFFERENTIAL, AUTOMATED Lab Routine Normal in second trimester 06/14/2024 9:25 AM EDT ANEMIA REFLEX CHEMISTRY HOLD Lab Routine Normal in second trimester 06/14/2024 9:25 AM EDT SYPHILIS ANTIBODY SCREEN Lab Routine Normal in second trimester 06/14/2024 9:25 AM EDT MYCODE SUBSEQUENT ADULT Lab Routine [employer] Other*[id number] 06/14/2024 9:25 AM EDT MYCODE SST1 Lab Routine [employer] Other*[id number] 06/14/2024 9:25 AM EDT MYCODE SST2 Lab Routine [employer] Other*[id number] 06/14/2024 9:25 AM EDT Health Maintenance Due Date Last Done Comments COVID-19 Vaccine (2022- season) 2023 11/25/2021 Depression Screening 12/18/2023 12/18/2022 [...] this encounter Visit Diagnoses Diagnosis Normal in second trimester Thyroid dysfunction in , unspecified trimester [employer] Other*[id number] documented in this encounter Care Teams Sr. Director Relationship Specialty Start Date End Date Patsy Singh DO [address] [facility] [place] [address] PCP - General Family Medicine 06/17/22 documented as of this encounter
--- OUTSIDE RECORDS SUMMARY | 2024-09-01 10:34 | External Medical Summary | Summary of Care ---
Author Name Unknown Organization [facility] Address [address] [facility] [address] Phone [phone] Care Team Providers Care Cooler Operator Name Role Phone SamanthaPatsy Daniel BLOOM Primary Care Provider [phone] Reason for Visit * Reason Onset Date Comments 06/29/2024 Encounter Details Date Type Department Care Team (Late st Contact Info) Description 06/29/2024 Telephone Gynecology/Obstetrics [facility] [address] [place] [address] Lynsey Stinson CRNP [address] [place] [address] Allergies No known active allergiesdocumented as of this encounter (statuses as of 06/30/2024) Medications Medication Sig Dispensed Refills Start Date End Date Status 28-0.8 MG Oral Tablet Take by mouth. Active documented as of this encounter (statuses as of 06/30/2024) Active Problems Problem Noted Date Diagnosed Date [...] as of this encounter (statuses as of 06/30/2024) Immunizations Name Administration Dates Next Due DTaP [...] money to get more. Never true 10/06/2023 [place] Depression Scale Answer Date Recorded [place] Depression Scale Total 1 01/21/2024 The thought [...] Encounter - Heidi Enriquez MED ASSIST - 06/29/2024 8:34 AM EDT FMLA papers put on Tessy's desk. 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 States does not need faxed, patient will take care of handing in papers. documented in this encounter Plan of Treatment Upcoming Encounters Date Type Department Care Team (Late st Contact Info) Description 07/13/2024 3:45 PM EDT Office Visit Gynecology/Obstetrics [facility] [address] [place] [address] Kandy White PA-C [address] [place] [address] [place] [address] 07/27/2024 8:00 AM EDT Office Visit Gynecology/Obstetrics [facility] [address] [place] [address] Lynsey Stinson CRNP [address] [place] [address] 08/09/2024 8:45 AM EDT Office Visit Gynecology/Obstetrics [facility] [address] [place] [address] Ronal Saldaña MD [address] [place] [address] 08/16/2024 8:00 AM EDT Office Visit Gynecology/Obstetrics [facility] [address] [place] [address] Lynsey Stinson CRNP [address] [place] [address] 2024 8:15 AM EDT Office Visit Gynecology/Obstetrics [facility] [address] [place] [address] Lynsey Stinson CRNP [address] [address] Health Maintenance Due Date Last Done Comments [...] filedocumented as of this encounter Care Teams Cooler Operator Relationship Specialty Start Date End Date Patsy Singh DO [address] [place] [address] PCP - General Family Medicine 06/17/22 documented as of this encounter
--- OUTSIDE RECORDS SUMMARY | 2024-09-01 10:34 | External Medical Summary ---
Author Name Unknown Address Unknown Organization K01:LABORATORY [facility] [place] - [address] [facility] [place] [address] Laboratory Report Ordering Provider Test Date Status JUAN HUANG 06/14/2024 09:25:02 Final Observation Date Value Abnormality Reference (Units ) Status Treponema pallidum Ab [Presence] in Serum by Immunoassay 06/14/2024 09:25:02 Nonreactive Nonreactive Final No serologic evidence of syp hilis. No additional testing clinicially indicated at this time. Consider repeat testing in 2-4 weeks if acute or primary syphilis is suspected. Performing Location LABORATORY [facility] [place] - [address] [place] [address]
--- OUTSIDE RECORDS SUMMARY | 2024-09-01 10:35 | External Medical Summary | Summary of Care ---
Author Name Unknown Organization [facility] Address [address] [place] [address] Phone [phone] Care Team Providers Care Latex Foam Worker Name Role Phone RenitaPatsy corey Daniel BLOOM Primary Care Provider [phone] Reason for Visit * Reason Comments Outpatient Testing Encounter Details Date Type Department Care Team (Late st Contact Info) Description 04/16/2024 9:20 AM EDT Laboratory Laboratory, [facility] [id number] [facility] 132 [place] [address] Thyroid dysfunction in , unspecified trimester Allergies No known active allergiesdocumented as of this encounter (statuses as of 04/16/2024) Medications Medication Sig Dispensed Refills Start Date End Date Status 28-0.8 MG Oral Tablet Take by mouth. Active documented as of this encounter (statuses as of 04/16/2024) Active Problems Problem Noted Date Diagnosed Date [...] as of this encounter (statuses as of 04/16/2024) Immunizations Name Administration Dates Next Due DTaP Dipth/Tet/Acell Pertussis (Infanrix), Peds 12/30/1991,05/18/1991,03/03/1991,10/29 H1N1 2008 Influenza, IM 09/28/2009 HIB PRP-T, 4 dose (ActHib) 12/30/1991,,03/15/1991,11/13 HPV Vaccine, 4-Valent 11/06/2009,07/03/2009,02/2009 Hepatitis B, 0-19 [...] TDAP, Age 7 and older, IM (Adacel) 04/18/2009 Varicella Vaccine (Chicken Pox) 04/20/2009,06/27 documented as [...] money to get more. Never true 10/06/2023 [place] Depression Scale Answer Date Recorded [place] Depression Scale Total 1 01/21/2024 The thought of harming myself has occurred to me . Never 01/21/2024 Estimated Date of Delivery Comme nts Yes [...] Care Team (Late st Contact Info) Description 04/16/2024 9:45 AM EDT Imaging Radiology [facility] [facility] [address] [place] [address] Normal in third trimester 04/16/2024 11:45 AM EDT [facility] [address] [place] [address] Lexy Vale CRNP [address] [place] [address] 08/23/2024 8:00 AM EDT [facility] [address] [place] [address] Pilar Elizabeth PA-C [address] [place] [address] Pending Results Name Type Priority Associated Diagnoses Date /Time TSH WITH FREE T4 IF INDICATED Lab Routine Thyroid dysfunction in , unspecified trimester 04/16/2024 9:27 AM EDT Health Maintenance Due Date Last Done Comments COVID-19 Vaccine ( season) 2023 11/25/2021 Depression Screening 12/18/2023 12/18/2022 Pap Smear 07/22/2026 07/22/2023, 05/18, 06/27/2017 Cervical Cancer Screening 07/22/2028 HPV/Co-Test 07/22/2028 07/22/2023 DTaP,Tdap,and Td Vaccines (8 - Td or Tdap) 10/12/2029 10/12/2019, 04/18/2009, 06/27/2005, Additional history exists Hepatitis B Completed 01/11/1994, 05/18, 03/30/1993 MENINGOCOCCAL (MENACTRA/MENVEO) Completed 04/20/2009, 04/18/1992 GARDASIL-HPV IMMUNIZATION SERIES Completed 11/06/2009, 07/03/2009, 04/20/2009 Influenza Vaccine (FLU shot) Completed , 09/25/2022, 10/05/2019, Additional history exists Pneumococcal Vaccine: Pediatrics (0 to 5 Years) and At-Risk Patients (6 to 64 Years) Aged Out No longer eligible based on patient's age to complete this topic documented as of this encounter Medical Devices Not on filedocumented as of this encounter Visit Diagnoses Diagnosis Normal in third trimester Thyroid dysfunction in , unspecified trimester documented in this encounter Care Teams Latex Foam Worker Relationship Specialty Start Date End Date Patsy Singh DO [address] [place] [address] PCP - General Family Medicine 06/17/22 documented as of this encounter
--- OUTSIDE RECORDS SUMMARY | 2024-09-01 10:35 | External Medical Summary ---
Author Name Unknown Address Unknown Organization K01:[facility] [place] [address] [facility] [place] [address] Laboratory Report Ordering Provider Test Date Status JUAN HUANG 06/14/2024 09:25:02 Final Observation Date Value Abnormality Reference (Units ) Status SYNC LEUKOCYTES IN BLOOD BY AUTOMATED COUNT 06/14/2024 09:25:02 9.84 4.00-10.80 (K/uL) Final Segs 06/14/2024 09:25:02 77.7 Above high normal 40.0-75.0 (%) Final Lymphs % 06/14/2024 09:25:02 16.3 Below low normal 18.0-42.0 (%) Final Monos 06/14/2024 09:25:02 5.0 1.0-11.0 (%) Final Eosinophils 06/14/2024 09:25:02 0.3 0.0-6.0 (%) Final Basos 06/14/2024 09:25:02 0.2 0.0-2.0 (%) Final Immature Granulocyte, Percent 06/14/2024 09:25:02 0.5 0.0-2.0 (%) Final Absolute Segs 06/14/2024 09:25:02 7.65 1.80-7.70 (K/uL) Final Lymphs, absolute 06/14/2024 09:25:02 1.60 1.00-4.80 (K/ul) Final Monos, Abs 06/14/2024 09:25:02 0.49 0.00-1.10 (K/uL) Final Eos, Abs 06/14/2024 09:25:02 0.03 0.00-0.70 (K/uL) Final Basos, Abs 06/14/2024 09:25:02 0.02 0.00-0.20 (K/uL) Final Immature Granulocytes, Number 06/14/2024 09:25:02 0.05 0.00-0.20 (K/uL) Final Performing Location [facility] [place] - [facility] [address] [facility] [address]
--- OUTSIDE RECORDS SUMMARY | 2024-09-01 10:35 | External Medical Summary ---
Author Name Unknown Address Unknown Organization K01:[place]ATORY [facility] [place] [address] [place] [address] Laboratory Report Ordering Provider Test Date Status REINABACKER 06/14/2024 09:25:02 Final Observation Date Value Abnormality Reference (Units ) Status WBC, Total 06/14/2024 09:25:02 9.84 4.00-10.8 0 (K/uL) Final RBC 06/14/2024 09:25:02 3.68 3.85-5.15 (M/uL) Final Hemoglobin 06/14/2024 09:25:02 12.6 12.0-15.3 (g/dL) Final Anemia reflex testing trigge rs on a HGB < 12.0 for Females and HGB < 13.0 for Males in accordance with the WHO Anemia Guidelines
Anemia reflex testing triggers on a HGB < 12.0 for Females and HGB < 13.0 for Males in accordance with the WHO Anemia Guidelines HCT 06/14/2024 09:25:02 36.7 36.0-45.2 (%) Final MCV 06/14/2024 09:25:02 99.7 81.5-97.5 (fL) Final MCH 06/14/2024 09:25:02 34.2 27.0-34.0 (pg) Final MCHC 06/14/2024 09:25:02 34.3 32.0-36.0 (g/dL) Final RDW 06/14/2024 09:25:02 12.7 11.5-15.5 (%) Final Platelets 06/14/2024 09:25:02 228 140-400 (K /uL) Final MPV 06/14/2024 09:25:02 9.8 6.6-11.1 ( fL) Final Nucleated erythrocytes/100 leukocytes [Ratio] in Blood by Automated count 06/14/2024 09:25:02 0 <=0 (/100 WBCs) [facility] Performing Location LABORATORY [facility] - [address] [facility] [address]
--- OUTSIDE RECORDS SUMMARY | 2024-09-01 10:35 | External Medical Summary ---
Author Name Unknown Address Unknown Organization K01:[place]ORY [facility] [place] [address] [place] [address] Laboratory Report Ordering Provider Test Date Status LOGAN BARRAZA 06/14/2024 09:25:02 Final Observation Date Value Abnormality Reference (Units ) Status MYCODE SPECIMEN-SST 06/14/2024 09:25:02 Freezing of extracted DNA, whole blood and/or serum. Final Performing Location LABORATORY C - [address] [place] [address]
--- OUTSIDE RECORDS SUMMARY | 2024-09-01 10:35 | External Medical Summary ---
Author Name Unknown Address Unknown Organization : Laboratory Report Ordering Provider Test Date Status JUAN HUANG 04/29/2024 07:21:46 Final Observation Date Value Abnormality Reference (Units ) Status INTERPRETATION 04/29/2024 07:21:46 SEE BELOW Final Screen negative for open NTD . RISK FOR ONTD 04/29/2024 07:21:46 1:349 Final CALC'D GESTATIONAL AGE 0604/29/2024 07:21:46 21.9 Final AFP, SERUM 04/29/2024 07:21:46 158.7 (ng/mL) Final AFP MOM 04/29/2024 07:21:46 2.04 Final Reference Range:
NTD < 2.50
IDD <1.90
TWINS <4.00
TWINS IDD <3.50
TRIPLETS <4.50
The AFP test result indicates that this patient is
screen negative for open NTD. It should be noted
that normal test results can never guarantee the
of a normal baby and that 2-3% of newborns
have some type of physical or mental defect, many
of which are undetectable through any known
diagnostic technique.
This is a screening test, not a diagnostic test.
This risk assessment report is based in part on
demographic data provided by the ordering
physician. Please notify the laboratory promptly
if any data are incorrect. For assistance with
recalculations, please call your local [facility] laboratory. For assistance with
interpretation of these results, please contact
your Local [facility] genetic counselor or
call [phone] ([phone]).
Interpretive Cutoffs
Screen Positive for Open NTD:
> or = 2.50 adjusted MOM
> or = 1.90 adjusted MOM for insulin-dependent diabetics
> or = 4.00 adjusted MOM for twins
> or = 3.50 adjusted MOM for twins insulin-dependent diabetics
> or = 4.50 adjusted MOM for triplets
For additional information, please refer to
[email or web address]/[email or web address]
(This link is being provided for
informational/educational purposes only.) DATE OF 04/29/2024 07:21:46 1990 Final COLLECTION DATE 04/29/2024 07:21:46 04/29/2024 Final MATERNAL WEIGHT 04/29/2024 07:21:46 143 (lbs ) Final EST'D DATE OF DELIVERY 04/29/2024 07:21:46 09/03/2024 Final CECI DETERMINED BY 04/29/2024 07:21:46 LMP Final MOTHER'S ETHNIC ORIGIN 04/29/2024 07:21:46 WHITE Final NUMBER OF FETUSES 04/29/2024 07:21:46 1 Final INSULIN DEPEND DIABETIC 04/29/2024 07:21:46 NO Final REPEAT SPECIMEN 04/29/2024 07:21:46 NO Final HX OF NEURAL TUBE DEFECTS 04/29/2024 07:21:46 NO Final PREV DOWN SYND 04/29/2024 07:21:46 NO Final DONOR EGG 04/29/2024 07:21:46 NO Final DONOR AGE: EGG RETRIEVAL 04/29/2024 07:21:46 NOT GIVEN Final Test performed by [facility]
[address],
[place] [address]

Camera Supervisor: Ninfa De Leon MD,PHD,АННА
Test Reported by [facility],
[facility],
[address] [place], [place]
Stevenson Cook M.D., Ph.D., Director of Laboratories
, JUDY [id number] Performing Location
--- OUTSIDE RECORDS SUMMARY | 2024-09-01 10:35 | External Medical Summary ---
Author Name Unknown Address Unknown Organization K01:LABORATORY [facility] [place] [address] [facility] [address] Laboratory Report Ordering Provider Test Date Status JUAN HUANG 06/14/2024 09:25:02 Final Observation Date Value Abnormality Reference (Units ) Status TSH 06/14/2024 09:25:02 1.38 0.27-4.20 (uIU/mL) Final Performing Location LABORATORY [facility] [place] - [address] [facility] [address]
--- OUTSIDE RECORDS SUMMARY | 2024-09-01 10:35 | External Medical Summary | Summary of Care ---
Author Name Unknown Organization [facility] Address [address] [facility] [place] [address] Phone [phone] Care Team Providers Care Marriage Performer Name Role Phone Patsy Singh DO Primary Care Provider [phone] Encounter Details Date Type Department Care Team (Late st Contact Info) Description 04/20/2024 Orders Only PATIENT PORTAL DO NOT DELETE THIS DEPT USED BY [place] [id number] Allergies No known active allergiesdocumented as of this encounter (statuses as of 04/20/2024) Medications Medication Sig Dispensed Refills Start Date End Date Status 28-0.8 MG Oral Tablet Take by mouth. Active documented as of this encounter (statuses as of 04/20/2024) Active Problems Problem Noted Date Diagnosed Date [...] as of this encounter (statuses as of 04/20/2024) Immunizations Name Administration Dates Next Due DTaP Dipth/Tet/Acell Pertussis (Infanrix), Peds 12/30/1991,05/18/1991,03/03/1991,10/29 H1N1 2009 Influenza, IM 09/28/2009 HIB PRP-T, 4 dose [...] money to get more. Never true 10/06/2023 [place] Depression Scale Answer Date Recorded [place] Depression Scale Total 1 01/21/2024 The thought [...] Care Team (Late st Contact Info) Description 05/17/2024 8:45 AM EDT Office Visit Gynecology/Obstetrics [facility] [address] [place] [address] Lexy Vale CRNP [address] [place] [address] 08/23/2024 8:00 AM EDT [facility] [address] [place] [address] Pilar Elizabeth PA-C [address] [place] [address] Health Maintenance Due Date Last Done Comments [...] filedocumented as of this encounter Care Teams Marriage Performer Relationship Specialty Start Date End Date Patsy Singh DO [address] [facility] [place] [address] PCP - General Family Medicine 06/17/22 documented as of this encounter
--- OUTSIDE RECORDS SUMMARY | 2024-09-01 10:35 | External Medical Summary | Summary of Care ---
Author Name Unknown Organization [facility] Address [address] [facility] [place] [address] Phone [phone] Care Team Providers Care Barrer And Tacker Name Role Phone SamanthaPatsy Daniel BLOOM Primary Care Provider [phone] Reason for Visit * Reason Comments Return Visit Encounter Details Date Type Department Care Team (Late st Contact Info) Description 05/17/2024 8:45 AM EDT Office Visit Gynecology/Obstetric s Byrdshannan Higueras [address] [facility] [place] [address] BackLexy piper CRNP [address] [facility] [address] Normal in second trimester*; Thyroid dysfunction in , unspecified trimester; Previous delivery affecting Allergies No known active allergiesdocumented as of this encounter (statuses as of 05/17/2024) Medications Medication Sig Dispensed Refills Start Date End Date Status 28-0.8 MG Oral Tablet Take by mouth. Active documented as of this encounter (statuses as of 05/17/2024) Active Problems Problem Noted Date Diagnosed Date Normal 01/21/2024 Thyroid dysfunction in , unspecified tr imester 01/21/2024 Overview: S/p partial thyroidectomy. No medication at NOB. TSH every trimester. TSH Results: Lab Results Component Value Date/Time TSH - [facility] 2.46 10/06/2023 10:13 AM TSH - [facility] [...] as of this encounter (statuses as of 05/17/2024) Immunizations Name Administration Dates Next Due DTaP Dipth/Tet/Acell Pertussis (Infanrix), Peds 12/30/1991,05/18/1991,03/03/1991,10/29 H1N1 2008 Influenza, IM 09/28/2009 HIB PRP-T, 4 Dose, PF, IM (Hiberix) 12/18,05/18/1991,03/15/1991,11/13 HPV Vaccine, 4-Valent 11/06/2009,07/03/2009,02/2009 Hepatitis B, 0-19 [...] money to get more. Never true 10/06/2023 [place] Depression Scale Answer Date Recorded [place] Depression Scale Total 1 01/21/2024 The thought [...] Sign Reading Time Taken Comments Blood Pressure 102/60 05/17/2024 8:55 AM EDT Pulse - - Temperature - - Respiratory Rate - - Oxygen Saturation - - Inhaled Oxygen Concentration - - Weight 67 kg (147 lb 12.8 oz) 05/17/2024 8:55 AM EDT Height - - Body Mass Index 26.39 03/19/2024 2:09 PM EDT documented in this encounter Progress Notes * Lexy Vale CRNP - 05/17/2024 8:57 AM EDT 24w3d + movement. No cramping, bleeding, leaking. Undecided on delivery plan. Will schedule future MD appt to discuss further. Labs ordered for next visit, including TSH. Return in 4 weeks. LEDY Young documented in this encounter Plan of Treatment Upcoming Encounters Date Type Department Care Team (Late st Contact Info) Description 06/14/2024 8:20 AM EDT [facility] [address] [place] [phone] [place] [address] [place] [address] 06/14/2024 8:30 AM EDT Office Visit Gynecology/Obstetrics [facility] [address] [place] [address] Lexy Vale CRNP [address] [place] [address] 08/11/2024 8:45 AM EDT Office Visit Gynecology/Obstetrics [facility] [address] [place] [address] Ronal Saldaña MD [address] [place] [address] 08/23/2024 8:00 AM EDT Office Visit Gynecology/Obstetrics [facility] [address] [place] [address] Pilar Elizabeth PA-C [address] [place] [address] Scheduled Orders Name Type Priority Associated Diagnoses Orde r Schedule 50-G GESTATIONAL GLUCOSE, 1 HOUR Lab Routine Normal in second trimester Expected: 05/31/2024 (Approximate), Expires: 05/17/2025 CBC WITH WBC DIFFERENTIAL AND ANEMIA REFLEX WORKUP Lab Routine Normal in second trimester Expected: 05/31/2024 (Approximate), Expires: 05/17/2025 SYPHILIS ANTIBODY SCREEN WITH REFLEX TO RPR Lab Routine Normal in second trimester Expected: 05/31/2024 (Approximate), Expires: 05/17/2025 TSH WITH FREE T4 IF INDICATED Lab Routine Thyroid dysfunction in , unspecified trimester Expected: 06/17/2024 (Approximate), Expires: 05/17/2025 Health Maintenance Due Date Last Done Comments [...] GARDASIL-HPV IMMUNIZATION SERIES Completed 11/06/2009, 07/03/2009, 04/20/2009 Pneumococcal Vaccine: Pediatrics (0 to 5 Years) and At-Risk Patients (6 to 64 Years) Aged Out No longer eligible based on patient's age to complete this topic documented as of this encounter Medical Devices Not on filedocumented as of this encounter Visit Diagnoses Diagnosis Normal in second trimester- Primary Thyroid dysfunction in , unspecified trimester Previous delivery affecting Previous delivery, unspecified as to episode of care or not applicable documented in this encounter Care Teams Barrer And Tacker Relationship Specialty Start Date End Date Patsy Singh DO [address] [facility] [place] [address] PCP - General Family Medicine 06/17/22 documented as of this encounter
--- OUTSIDE RECORDS SUMMARY | 2024-09-01 10:35 | External Medical Summary | Summary of Care ---
Author Name Unknown Organization [facility] Address [address] [place] [address] Phone [phone] Care Team Providers Care Truck Mechanic Name Role Phone RenitaPatsy corey Daniel BLOOM Primary Care Provider [phone] Reason for Visit * Reason Comments Return Visit Encounter Details Date Type Department Care Team (Late st Contact Info) Description 04/16/2024 11:45 AM EDT Office Visit Gynecology/Obstetric s ByrdKareemanastasia Echols [address] [facility] [place] [address] BackLexy piper CRNP [address] [place] [address] Normal in second trimester*; Thyroid dysfunction in [...] Lab Results Component Value Date/Time TSH - [facility] 2.46 10/06/2023 10:13 AM TSH - [...] money to get more. Never true 10/06/2023 [place] Depression Scale Answer Date Recorded [place] Depression Scale Total 1 01/21/2024 The thought [...] Sign Reading Time Taken Comments Blood Pressure 100/60 04/16/2024 10:41 AM EDT Pulse - - Temperature - - Respiratory Rate - - Oxygen Saturation - - Inhaled Oxygen Concentration - - Weight 65.2 kg (143 lb 12.8 oz) 024 10:41 AM EDT Height - - Body Mass Index 25.68 03/19/2024 2:09 PM EDT documented in this encounter Progress Notes * Lexy Vale CRNP - 04/16/2024 11:07 AM EDT 20w0d Anatomy scan completed, report in process. Feels well, + movement. No cramping/bleeding. Recent TSH draw in process. Will consider MSAFP,order placed - advised to complete by 22w 6d. Undecided on TOLAC vs repeat C/S. Will schedule future visit with MD to discuss delivery further. Return in 4 weeks. LEDY Young * Radha Navarro LPN - 04/16/2024 10:48 AM EDT 20w0d Denies vaginal bleeding/rom + movement Anatomy scan today No new concerns documented in this encounter Plan of Treatment Upcoming Encounters Date Type Department Care Team (Late st Contact Info) Description 05/17/2024 8:45 AM EDT Office Visit Gynecology/Obstetrics [facility] [address] [place] [address] Lexy Vale CRNP [address] [place] [address] 08/23/2024 8:00 AM EDT Office Visit Gynecology/Obstetrics [facility] [address] [place] [address] Pilar Elizabeth PA-C [address] [place] [address] Scheduled Orders Name Type Priority Associated Diagnoses Orde r Schedule MATERNAL SERUM AFP Lab Routine Normal in second trimester Expected: 04/16/2024 (Approximate), Expires: 04/16/2025 Health Maintenance Due Date Last Done Comments [...] applicable documented in this encounter Care Teams Truck Mechanic Relationship Specialty Start Date End Date Patsy Singh DO [address] [place] [address] PCP - General Family Medicine 06/17/22 documented as of this encounter
--- OUTSIDE RECORDS SUMMARY | 2024-09-01 10:35 | External Medical Summary ---
Author Name Unknown Address Unknown Organization K01:LAB[place]ATORY [facility] [place] [address] [facility] [place] [address] Laboratory Report Ordering Provider Test Date Status LOGAN BARRAZA 06/14/2024 09:25:02 Final Observation Date Value Abnormality Reference (Units ) Status MYCODE SPECIMEN-SST 06/14/2024 09:25:02 Freezing of extracted DNA, whole blood and/or serum. Final Performing Location LABORATORY C - [address] [place] [address]
--- OUTSIDE RECORDS SUMMARY | 2024-09-01 10:35 | External Medical Summary | Summary of Care ---
Author Name Unknown Organization [facility] Address [address] [facility] [place] [address] Phone [phone] Care Team Providers Care Tool And Machine Maintainer Name Role Phone Patsy Singh DO Primary Care Provider [phone] Encounter Details Date Type Department Care Team (Late st Contact Info) Description 03/23/2024 Orders Only PATIENT PORTAL DO NOT DELETE THIS DEPT USED BY [place] [address] Allergies No known active allergiesdocumented as of this encounter (statuses as of 03/23/2024) Medications Medication Sig Dispensed Refills Start Date End Date Status 28-0.8 MG Oral Tablet Take by mouth. 0 Active documented as of this encounter (statuses as of 03/23/2024) Active Problems Problem Noted Date Diagnosed Date [...] as of this encounter (statuses as of 03/23/2024) Immunizations Name Administration Dates Next Due DTaP [...] Tetanus/Diptheria (ADULT) 06/27/2005 TD, Preservative Free 10/12/2019 TDAP (age 11 and older)(Adacel) 04/18/2009 Varicella Vaccine (Chicken Pox) 04/20/2009,06/27 documented [...] money to get more. Never true 10/06/2023 [place] Depression Scale Answer Date Recorded [place] Depression Scale Total 1 01/21/2024 The thought [...] Description 04/16/2024 9:45 AM EDT Imaging Radiology [facility] 2nd [facility] [address] [place] [address] 04/16/2024 11:45 AM EDT Office Visit Gynecology/Obstetrics [facility] [address] [place] [address] Lexy Vale CRNP [address] [place] [address] 08/23/2024 8:00 AM EDT Office Visit Gynecology/Obstetrics [facility] [address] [place] [address] Pilar Elizabeth PA-C [address] [place] [address] Health Maintenance Due Date Last Done Comments [...] filedocumented as of this encounter Care Teams Tool And Machine Maintainer Relationship Specialty Start Date End Date Patsy Singh DO [address] [place] [address] PCP - General Family Medicine 06/17/22 documented as of this encounter
--- OUTSIDE RECORDS SUMMARY | 2024-09-01 10:35 | External Medical Summary ---
Author Name Unknown Address Unknown Organization K01:[place] [facility] [place] [address] [place] [address] Laboratory Report Ordering Provider Test Date Status KRISHDEENA 04/16/2024 09:27:48 Final Observation Date Value Abnormality Reference (Units ) Status TSH 04/16/2024 09:27:48 2.18 0.27-4.20 (uIU/mL) Final Performing Location [place] [facility] [place] [address] [facility] [address]
--- OUTSIDE RECORDS SUMMARY | 2024-09-01 10:35 | External Medical Summary | Summary of Care ---
Author Name Unknown Organization [facility] Address [address] [place] [address] Phone [phone] Care Team Providers Care De Icer Finisher Name Role Phone ManavPatsy broussard Daniel BLOOM Primary Care Provider [phone] Reason for Visit * Reason Comments Return Visit Encounter Details Date Type Department Care Team (Late st Contact Info) Description 03/19/2024 2:15 PM EDT Office Visit Gynecology/Obstetric s Byrdshannan Echols [address] [facility] [place] [address] Lynsey Stinson CRNP [address] [facility] [address] Normal in third trimester*; Thyroid dysfunction in , unspecified trimester; Previous delivery affecting Allergies No known active allergiesdocumented as of this encounter (statuses as of 03/19/2024) Medications Medication Sig Dispensed Refills Start Date End Date Status 28-0.8 MG Oral Tablet Take by mouth. 0 Active documented as of this encounter (statuses as of 03/19/2024) Active Problems Problem Noted Date Diagnosed Date Normal 01/21/2024 Thyroid dysfunction in , unspecified tr imester 01/21/2024 Overview: S/p partial thyroidectomy. No medication at NOB. TSH every trimester. TSH Results: Lab Results Component Value Date/Time TSH - [facility] 2.46 10/06/2023 10:13 AM TSH - [...] as of this encounter (statuses as of 03/19/2024) Immunizations Name Administration Dates Next Due DTaP [...] money to get more. Never true 10/06/2023 [place] Depression Scale Answer Date Recorded [place] Depression Scale Total 1 01/21/2024 The thought [...] Sign Reading Time Taken Comments Blood Pressure 112/68 03/19/2024 2:09 PM EDT Pulse - - Temperature - - Respiratory Rate - - Oxygen Saturation - - Inhaled Oxygen Concentration - - Weight 62.6 kg (138 lb) 03/19/2024 2:09 PM EDT Height 159.4 cm (5' 2.75") 03/19/2024 2:09 PM ED T Body Mass Index 24.64 03/19/2024 2:09 PM EDT documented in this encounter Progress Notes * Lynsey Stinson CRNP - 03/19/2024 2:31 PM EDT 16w0d Complaints: none Feeling well overall. +FM. No contractions, bleeding, or LOF. TSH and anatomy u/s with next visit. LEDY Pena documented in this encounter Nursing Notes * Tami Santillan LPN - 03/19/2024 2:16 PM EDT 16w0d Denies concerns documented in this encounter Plan of Treatment Upcoming Encounters Date Type Department Care Team (Late st Contact Info) Description 04/16/2024 9:45 AM EDT Imaging Radiology [facility] 2nd Floor, [place] [address] [place] [address] 04/16/2024 11:45 AM EDT Office Visit Gynecology/Obstetrics [facility] [address] [place] [address] Lexy Vale CRNP [address] [place] [address] 08/23/2024 8:00 AM EDT Office Visit Gynecology/Obstetrics [facility] [address] [place] [address] Pilar Elizabeth PA-C [address] [place] [address] Scheduled Orders Name Type Priority Associated Diagnoses Orde r Schedule US PREG SINGLE/1ST GEST, 14 WEEKS OR LATER Medical Imaging Routine Normal in third trimester Expected: 04/02/2024 (Approximate), Expires: 04/19/2025 TSH WITH FREE T4 IF INDICATED Lab Routine Thyroid dysfunction in , unspecified trimester Expected: 03/19/2024 (Approximate), Expires: 03/19/2025 Health Maintenance Due Date Last Done Comments [...] applicable documented in this encounter Care Teams De Icer Finisher Relationship Specialty Start Date End Date Patsy Singh DO [address] [place] [address] PCP - General Family Medicine 06/17/22 documented as of this encounter
[2024-09-01] MEDS ORDERED: Nursing to Pharmacy Communication SCH (11:45)
[2024-09-01] MEDS: OXYTOCIN 30 UNITS/LR 1,003 ML IV SCH (13:06)
[2024-09-01] MEDS: KETOROLAC 30 MG/ML VIAL IV SCH (13:39)
[2024-09-01] MEDS: ACETAMINOPHEN 325 MG TAB PO SCH (13:39)
[2024-09-01] MEDS: SIMETHICONE 80 MG CHEW PO SCH (13:40)
[2024-09-01] MEDS ORDERED: ACETAMINOPHEN 325 MG TAB PO SCH (14:45)
[2024-09-01] MEDS: DOCUSATE SODIUM 100 MG CAP PO SCH (20:07)
--- NOTE | 2024-09-02 06:44 | Obstetrical Progress Note ---
Date of Service September 02, 2024 Assessment & Plan (1) state: Patient is a 34yo day 1 s/p . Feels well today, VSS. Continue regular care. Ambulation, as tolerated. Pain control with ibuprofen. Hgb: Interested in going home: Follow up with Dr. Salvador in 6wks. Subjective Patient is a 34yo day 1 s/p . Ambulation: Voiding: Passing gas: Diet tolerance: Lochia: Feeding type: Current pain: Resting comfortably this AM in NAD. Denies fever, body aches, chills, headache, SOB, abdominal pain, LE pain/swelling, or LE numbness/tingling. Review of Systems as above Results & Data Vital Signs (Past 12 Hours) Vital Signs Temp Pulse Resp BP Pulse Ox O2 Del Method 09/02/24 03:38 36.9 C 76 18 112/71 99 Room Air 09/02/24 02:30 18 99 09/02/24 01:30 20 98 09/02/24 00:21 18 99 09/01/24 23:30 20 99 09/01/24 23:30 36.9 C 67 20 115/68 98 Room Air 09/01/24 22:30 20 98 09/01/24 21:30 18 100 09/01/24 20:30 20 99 09/01/24 19:30 18 100 09/01/24 19:30 36.7 C 66 18 120/69 98 Room Air
[2024-09-02 07:05] LABS: Basophils # (auto) 0.02 K/uL (0.00-0.20); Basophils % (auto) 0.2 %; Eosinophils # (auto) 0.01 K/uL (0.00-0.50); Eosinophils % (auto) 0.1 %; Hematocrit (blood only) 33.7 % (37.0-47.0); Hemoglobin 11.4 g/dl (12.0-16.0); Immature Granulocytes # (auto) 0.07 K/uL (0.01-0.20); Immature Granulocytes % (auto) 0.6 %; Lymphocytes # (auto) 1.37 K/uL (1.20-3.40); Lymphocytes % (auto) 11.7 %; Mean Corpuscular Hemoglobin 32.4 pg (25.0-34.0); Mean Corpuscular Hgb Conc 33.8 g/dL (32.0-36.0); Mean Corpuscular Volume 95.7 fL (80.0-100.0); Mean Platelet Volume 10.4 fL (9.4-12.4); Monocytes # (auto) 0.71 K/uL (0.11-0.59); Monocytes % (auto) 6.1 %; Neutrophils # (auto) 9.48 K/uL (1.40-6.50); Neutrophils % (auto) 81.3 %; Platelet Count 187 K/uL (130-400); RDW Coefficient of Variation 13.1 % (11.5-14.5); Red Blood Count 3.52 M/uL (4.20-5.40); White Blood Count 11.66 K/ul (4.8-10.8)
[2024-09-02] MEDS: FERROUS SULFATE 325 MG TAB PO SCH (08:12)
[2024-09-02] MEDS: PRENATAL VITAMIN 1 TAB PO SCH (08:12)
[2024-09-02] MEDS ORDERED: KETOROLAC 30 MG/ML VIAL IV PRN (08:36)
--- NOTE | 2024-09-02 09:14 | Obstetrical Progress Note ---
Date of Service September 02, 2024 Subjective Ambulation: ambulating normally Voiding: ford catheter in place Passing Gas:: Yes Diet Tolerance:: regular diet Lochia:: Small Feeding Type:: breast feeding Current Pain Level(1-10): 0 doing well Physical Exam Constitutional WD/WN, vitals as above Gastrointestinal (Abdomen) Inspection/Auscultation: abdomen normal to inspection dressing removed incision c/d/i abdomen soft and non-tender fundus firm below U Musculoskeletal Extremities: extremities normal to inspection Skin no rashes, warm and dry Neurologic patellar DTR's 2+ bilat, sensation intact Psychiatric A+Ox3, euthymic affect Results & Data Vital Signs (Past 12 Hours) Vital Signs Temp Pulse Resp BP Pulse Ox O2 Del Method 09/02/24 03:38 36.9 C 76 18 112/71 99 Room Air 09/02/24 02:30 18 99 09/02/24 01:30 20 98 09/02/24 00:21 18 99 09/01/24 23:30 20 99 09/01/24 23:30 36.9 C 67 20 115/68 98 Room Air 09/01/24 22:30 20 98 09/01/24 21:30 18 100 Laboratory Results Laboratory Results - last 48 hr 09/01/24 09/02/24 05:47 06:39 WBC 9.96 11.66 H RBC 3.90 L 3.52 L Hgb 12.8 11.4 L Hct 36.7 L 33.7 L MCV 94.1 95.7 MCH 32.8 32.4 MCHC 34.9 33.8 RDW Std Deviation 44.0 45.0 RDW Coeff of Lani 12.9 13.1 Plt Count 225 187 MPV 10.8 10.4 Immature Gran % (Auto) 0.5 0.6 Neut % (Auto) 69.2 81.3 Lymph % (Auto) 21.9 11.7 [place] % (Auto) 8.0 6.1 Eos % (Auto) 0.2 0.1 Baso % (Auto) 0.2 0.2 Neut # (Auto) 6.89 H 9.48 H Lymph # (Auto) 2.18 1.37 [place] # (Auto) 0.80 H 0.71 H Eos # (Auto) 0.02 0.01 Baso # (Auto) 0.02 0.02 Immature Gran # (Auto) 0.05 0.07 Treponema pallidum Ab Negative Blood Type A Positive Antibody Screen NEGATIVE
[2024-09-02] MEDS: IBUPROFEN 600 MG TAB PO SCH (12:51)
[2024-09-02 17:48] VITALS: O2SAT 98
[2024-09-02] MEDS: bisacodyL 5 MG TABEC PO SCH (20:00)
[2024-09-03 06:19] LABS: Hematocrit (blood only) 32.9 % (37.0-47.0); Hemoglobin 11.1 g/dl (12.0-16.0)
--- NOTE | 2024-09-03 08:13 | Obstetrical Progress Note ---
Date of Service September 03, 2024 Assessment & Plan Admission and Anticipated Discharge Date Admission Date: September 01, 2024 Subjective Patient is seen and examined. She feels well, no complaints. Pain is under control with oral meds. Ambulating without dizziness Voiding without difficulty Tolerating regular diet with out N&V Flatus + BM neg Bleeding is minimal No fever/ chills/ CP/ SOB/ N&V/ Leg pain Breast feeding without problems Vital Signs Temp Pulse Resp BP Pulse Ox O2 Del Method 09/02/24 23:55 36.8 C 70 14 114/69 Room Air 09/02/24 19:27 36.9 C 75 16 115/78 Room Air 09/02/24 17:00 37.1 C 69 20 110/72 98 Room Air Intake and Output 09/02/24 09/03/24 09/03/24 22:59 06:59 14:59 Output Total 350 / 800 Balance -350 / -800 Output: Urine 350 / 350 Lab Results 09/01/24 09/02/24 09/03/24 Range/Units 05:47 06:39 06:00 WBC 9.96 11.66 H (4.8-10.8) K/ul RBC 3.90 L 3.52 L (4.20-5.40) M/uL Hgb 12.8 11.4 L 11.1 L (12.0-16.0) g/dl Hct 36.7 L 33.7 L 32.9 L (37.0-47.0) % MCV 94.1 95.7 (80.0-100.0) fL MCH 32.8 32.4 (25.0-34.0) pg MCHC 34.9 33.8 (32.0-36.0) g/dL RDW Std Deviation 44.0 45.0 (36.4-46.3) fL RDW Coeff of Lani 12.9 13.1 (11.5-14.5) % Plt Count 225 187 (130-400) K/uL MPV 10.8 10.4 (9.4-12.4) fL Immature Gran % (Auto) 0.5 0.6 % Neut % (Auto) 69.2 81.3 % Lymph % (Auto) 21.9 11.7 % [place] % (Auto) 8.0 6.1 % Eos % (Auto) 0.2 0.1 % Baso % (Auto) 0.2 0.2 % Neut # (Auto) 6.89 H 9.48 H (1.40-6.50) K/uL Lymph # (Auto) 2.18 1.37 (1.20-3.40) K/uL [place] # (Auto) 0.80 H 0.71 H (0.11-0.59) K/uL Eos # (Auto) 0.02 0.01 (0.00-0.50) K/uL Baso # (Auto) 0.02 0.02 (0.00-0.20) K/uL Immature Gran # (Auto) 0.05 0.07 (0.01-0.20) K/uL Treponema pallidum Ab Negative (Negative) Blood Type A Positive Antibody Screen NEGATIVE PE: General: Alert, orientedx3, NAD CVS: S1S2 RRR Lungs; CTAB Abd: soft, NT, ND, BS+, fundus firm, below Umbilicus Incision: Clean, dry, intact Perineum intact, Lochia rubra minimal Ext; NT, no edema AP: 34 yo s/p C Section, pod# 2 VSS Afebrile doing well Continue routine postop care Encourage ambulation, PO intake All questions were answered D/C home , f/u in office Results & Data Vital Signs (Past 12 Hours) Vital Signs Temp Pulse Resp BP O2 Del Method 09/02/24 23:55 36.8 C 70 14 114/69 Room Air
[2024-09-03 08:26] VITALS: BP 120/76; PULSE 80; RESP 18; TEMP 97.5
[2024-09-03] MEDS ORDERED: IBUPROFEN 600 MG TAB PO PRN (08:36)
[2024-09-03] MEDS ORDERED: bisacodyL 10 MG SUPP PR PRN (08:36)
[2024-09-03] MEDS ORDERED: ACETAMINOPHEN 325 MG TAB PO PRN (14:36)
== END 2024-09-03 13:52 | disposition home health service (06) | DRG 788 ==
LOC: 4S1 05:30 → EDSTATUS 07:30 → 4E2 11:27
DX: Z37.0 Single live birth; Z3A.39 39 weeks gestation of pregnancy; O34.211 Maternal care for low transverse scar from previous cesarean delivery; Z83.3 Family history of diabetes mellitus